=== PATIENT | female | born 1970 | race Hispanic/Latino ===

== ENCOUNTER 2020-12-24 17:49 | Emergency (ER) | payer OTHER ==
--- OUTSIDE RECORDS SUMMARY | 2020-12-24 17:51 | XMS REPORT | Continuity of Care Document ---
:1970 Author Organization [facility] t Address [address] [place] [address] Care Team Providers Name Role Phone Ryland FREIRE Attending Clinician Problems This patient has no known problems. Allergies, Adverse Reactions, Alerts This patient has no known allergies or adverse reactions. Medications This patient has no known medications. Procedures This patient has no known procedures. Encounters Start End Encounter Admission Attending Care Care Encounter Source Date/Time Date/Time Type Type Clinicians Facility Department ID 2020-12-16 2020-12-16 Outpatient [facility] [id number] [facility] 00:00:00 00:00:00 [facility] 2019-08-28 2019-08-28 [facility] NADIYA Marcelino [id number] 08:19:17 16:40:17 ne Visit [facility] [id number] [place] [id number] [facility] [phone] [facility] [address] Building Results This patient has no known results.
--- NOTE | 2020-12-24 19:17 | RAD REPORT ---
EXAM DESCRIPTION: CT - Head Brain Wo Cont - 12/24/2020 7:08 pm CLINICAL HISTORY: DIZZINESS COMPARISON: <Comparisons> TECHNIQUE: All CT scans are performed using dose optimization technique as appropriate and may inclu de automated exposure control or mA/KV adjustment according to patient size. FINDINGS: No intracranial hemorrhage, hydrocephalus or extra-axial fluid collection.No areas of brai n edema or evidence of midline shift. The paranasal sinuses and mastoids are clear. The calvarium is intact. IMPRESSION: No acute intracranial abnormality.
[2020-12-24 21:15] LABS: Absolute Lymphocytes (CBC) 1.5 K/uL (0.7-4.9); Basophils % 0.5 % (0-1.3); Hematocrit 42.4 % (36.0-45.0); Lymphocytes % 24.1 % (15.3-44.8); MPV 7.2 fL (7.6-11.3); RBC Red Blood Cell Count 4.66 M/uL (3.86-4.86)
[2020-12-24 21:17] LABS: Protime INR 1.05
[2020-12-24] MEDS ORDERED: NA CHLORIDE 0.9% 1,000 ML ONE (21:26)
[2020-12-24] MEDS ORDERED: METOCLOPRAMIDE 10 MG/2mL INJ ONE (21:26)
[2020-12-24] MEDS ORDERED: KETOROLAC 30 MG/ML INJ ONE (21:26)
--- NOTE | 2020-12-24 21:31 | RAD REPORT ---
EXAM DESCRIPTION: RAD - Chest Single View - 12/24/2020 8:53 pm CLINICAL HISTORY: htn COMPARISON: Abdomen Pelvis W Contrast dated 12/22/2020; Abdomen Pelvis W Contrast dated 09/20/2020 CHEST PA AND LAT 2 VIEW dated 12/22/2014; CHEST SINGLE VIEW dated 03/16/2014; CHEST SINGLE VIEW dated 03/12/2014 FINDINGS: No evidence of edema or pneumonia. The heart size is within normal limits.No acute osseous abnormality. No significant pleural effusions or pneumothorax. IMPRESSION: No acute cardiopulmonary disease.
[2020-12-24 21:33] LABS: ALT/SGPT 45 U/L (12-78); AST/SGOT 25 U/L (15-37); Albumin 3.9 g/dL (3.4-5.0); Alkaline Phosphatase 129 U/L (45-117); BUN Blood Urea Nitrogen 9 mg/dL (7-18); Bicarbonate 31 mmol/L (21-32); Bilirubin Direct 0.2 mg/dL (0-0.2); Bilirubin Total 0.6 mg/dL (0.2-1.0); Glucose Level 97 mg/dL (74-106); Magnesium 2.3 mg/dL (1.8-2.4); NT PRO-BNP 374 pg/mL (<125); Potassium 3.9 mmol/L (3.5-5.1); Protein, Total 8.4 g/dL (6.4-8.2); Sodium Level 142 mmol/L (136-145); Troponin (Emerg Dept Use Only) < 0.02 ng/mL (0.0-0.045)
[2020-12-24 22:27] LABS: Thyroid Stimulating Hormone < 0.005 uIU/mL (0.360-3.740)
--- NOTE | 2020-12-24 22:46 | ER ---
Nurse's Notes [facility] Name: Colleen Ny Age: 50 yrs Sex: Female : 1970 Arrival Date: 12/24/2020 Time: 17:50 Bed 6 Private MD: Diagnosis: Essential (primary) hypertension Presentation: 12/24 18:12 Chief complaint: Patient states: "my blood pressure was 210/80 this morning and got aa5 scared". Pt reports dizziness earlier today. Denies any headache or dizziness at this time. Pt states "My doctor took me off my thyroid medicine since september and my new doctor doesn't want to prescribe me thyroid medication until I see a specialist". Coronavirus screen: At this time, the client does not indicate any symptoms associated with coronavirus-19. Ebola Screen: Patient negative for fever greater than or equal to 101.5 degrees Fahrenheit, and additional compatible Ebola Virus Disease symptoms. Initial Sepsis Screen: Does the patient meet any 2 criteria? No. Patient's initial sepsis screen is negative. Does the patient have a suspected source of infection? No. Patient's initial sepsis screen is negative. Risk Assessment: Do you want to hurt yourself or someone else? Patient reports no desire to harm self or others. Onset of symptoms was December 24, 2020. 18:12 Method Of Arrival: Ambulatory aa5 18:12 Acuity: TEO 2 aa5 Historical: - Allergies: 18:16 PENICILLINS; aa5 - PMHx: 18:16 Hypertensive disorder; thyroid problem; aa5 - PSHx: 18:16 throat; section; aa5 - Immunization history:: Client reports receiving the 2nd dose of the Covid vaccine, Flu vaccine is up to date. - Social history:: Smoking status: Patient denies any tobacco usage or history of. - Family history:: not pertinent. Screenin:03 Abuse screen: Denies threats or abuse. Nutritional screening: No deficits noted. ea Tuberculosis screening: No symptoms or risk factors identified. Fall Risk None identified. Assessment: 21:03 General: Appears in no apparent distress. Behavior is calm, cooperative, appropriate ea for age. Pain: Complains of pain in abdomen. Neuro: Level of Consciousness is awake, alert, obeys commands, Oriented to person, place, time. Cardiovascular: Patient's skin is warm and dry. Respiratory: Airway is patent Respiratory effort is even, unlabored, Respiratory pattern is regular, symmetrical. Derm: Skin is pink, warm \\T\\ dry. 22:04 Reassessment: Patient appears in no apparent distress at this time. Patient and/or jb4 family updated on plan of care and expected duration. Pain level reassessed. Patient is alert, oriented x 3, equal unlabored respirations, skin warm/dry/pink. 23:06 Reassessment: Patient and/or family updated on plan of care and expected duration. Pain ea level reassessed. Patient is alert, oriented x 3, equal unlabored respirations, skin warm/dry/pink. Discharge instruction given to patient verbalized the understanding of instruction. Pt left ED ambulatory tolerating well. Vital Signs: 18:12 BP 241 / 78; Pulse 63; Resp 18 S; Temp 97.9(TE); Pulse Ox 98% on R/A; aa5 21:30 BP 189 / 50; Pulse 52; Resp 18; Pulse Ox 98% on R/A; jb4 ED Course: 17:50 Patient arrived in ED. as 18:12 Arm band placed on. aa5 18:13 Triage completed. aa5 19:08 CT Head Brain wo Cont In Process Unspecified. EDMS 20:36 Tae Gauthier RN is Primary Nurse. jb4 20:37 Vitor Watts MD is Attending Physician. ma2 20:53 XRAY Chest (1 view) In Process Unspecified. EDMS 20:58 Initial lab(s) drawn, by ED staff, sent to lab. Inserted saline lock: 20 gauge in right jb4 antecubital area, using aseptic technique. Blood collected. 21:03 Patient has correct armband on for positive identification. Bed in low position. Call ea light in reach. 23:06 No provider procedures requiring assistance completed. IV discontinued, intact, ea bleeding controlled, No redness/swelling at site. Pressure dressing applied. Administered Medications: 21:08 Drug: NS 0.9% 1000 ml Route: IV; Rate: 1 bolus; Site: right antecubital; jb4 21:08 Drug: Reglan (metoCLOPramide) 10 mg Route: IVP; Site: right antecubital; jb4 21:10 Drug: Ketorolac 30 mg Route: IVP; Site: right antecubital; jb4 Outcome: 22:46 Discharge ordered by . matt 23:06 Discharged to home ambulatory, with family. noe 23:06 Condition: stable 23:06 Discharge instructions given to patient, Instructed on discharge instructions, follow up and referral plans. medication usage, Demonstrated understanding of instructions, follow-up care, medications, Prescriptions given X 1. 23:07 Patient left the ED. noe Signatures: Dispatcher [employer] EDMS Anyi Ogden Audri, RN RN aa5 Tae Gauthier RN RN jb4 Kina Helm RN RN ea Alzahri, Mohammad, MD MD ma2 Corrections: (The following items were deleted from the chart) 18:15 18:12 Chief complaint: Patient states: "my blood pressure was 210/80 this morning and aa5 got scared". Pt reports dizziness earlier today. Denies any headache or dizziness at this time. aa5 18:16 18:12 Acuity: TEO 3 aa5 aa5 18:17 18:16 Immunization history: Client reports receiving the 2nd dose of the Covid vaccine, aa5 Flu vaccine is not up to date. aa5
--- NOTE | 2020-12-24 22:46 | EDPHYS ---
Physician Documentation [facility] Name: Colleen Ny Age: 50 yrs Sex: Female : 1970 Arrival Date: 12/24/2020 Time: 17:50 Bed 6 Private MD: ED Physician Vitor Watts HPI: 12/24 22:08 This 50 yrs old Female presents to ER via Ambulatory with complaints of High ma2 Blood Pressure. 22:08 The patient has elevated blood pressure and discovered this at home. Onset: The ma2 symptoms/episode began/occurred gradually, 1 day(s) ago. Associated signs and symptoms: Pertinent negatives: chest pain, dizziness, dyspnea, headache, lightheadedness, nausea, visual changes, vomiting, weakness. Severity of symptoms: At its worst the blood pressure was moderate, in the emergency department the blood pressure is unchanged. The patient has experienced similar episodes in the past. Patient has high blood pressure, takes atenolol, her blood pressure has been high above 170s systolic, she is here with asymptomatic hypertension, she has a chronic headache, tension type, unchanged, however very mild headache at this time which is unchanged for the last 3 days.. Historical: - Allergies: 18:16 PENICILLINS; aa5 - PMHx: 18:16 Hypertensive disorder; thyroid problem; aa5 - PSHx: 18:16 throat; section; aa5 - Immunization history:: Client reports receiving the 2nd dose of the Covid vaccine, Flu vaccine is up to date. - Social history:: Smoking status: Patient denies any tobacco usage or history of. - Family history:: not pertinent. ROS: 22:08 Constitutional: Negative for fever, chills, and weight loss. ma2 22:08 All other systems are negative. Exam: 22:08 Constitutional: This is a well developed, well nourished patient who is awake, alert, ma2 and in no acute distress. Head/Face: Normocephalic, atraumatic. Eyes: Pupils equal round and reactive to light, extra-ocular motions intact. Lids and lashes normal. Conjunctiva and sclera are non-icteric and not injected. Cornea within normal limits. Periorbital areas with no swelling, redness, or edema. ENT: Nares patent. No nasal discharge, no septal abnormalities noted. Tympanic membranes are normal and external auditory canals are clear. Oropharynx with no redness, swelling, or masses, exudates, or evidence of obstruction, uvula midline. Mucous membranes moist. Neck: Trachea midline, no thyromegaly or masses palpated, and no cervical lymphadenopathy. Supple, full range of motion without nuchal rigidity, or vertebral point tenderness. No Meningismus. Chest/axilla: Normal chest wall appearance and motion. Nontender with no deformity. No lesions are appreciated. Cardiovascular: Regular rate and rhythm with a normal S1 and S2. No gallops, murmurs, or rubs. Normal PMI, no JVD. No pulse deficits. Respiratory: Lungs have equal breath sounds bilaterally, clear to auscultation and percussion. No rales, rhonchi or wheezes noted. No increased work of breathing, no retractions or nasal flaring. Abdomen/GI: Soft, non-tender, with normal bowel sounds. No distension or tympany. No guarding or rebound. No evidence of tenderness throughout. Back: No spinal tenderness. No costovertebral tenderness. Full range of motion. Skin: Warm, dry with normal turgor. Normal color with no rashes, no lesions, and no evidence of cellulitis. MS/ Extremity: Pulses equal, no cyanosis. Neurovascular intact. Full, normal range of motion. Neuro: Awake and alert, GCS 15, oriented to person, place, time, and situation. Cranial nerves II-XII grossly intact. Motor strength 5/5 in all extremities. Sensory grossly intact. Cerebellar exam normal. Normal gait. Vital Signs: 18:12 BP 241 / 78; Pulse 63; Resp 18 S; Temp 97.9(TE); Pulse Ox 98% on R/A; aa5 21:30 BP 189 / 50; Pulse 52; Resp 18; Pulse Ox 98% on R/A; jb4 MDM: 21:01 Patient medically screened. ma2 22:45 Differential diagnosis: htn, vs migrain headache vs tension headache. Data reviewed: ma2 vital signs, nurses notes. Counseling: I had a detailed discussion with the patient and/or guardian regarding: the historical points, exam findings, and any diagnostic results supporting the discharge/admit diagnosis, the presence of at least one elevated blood pressure reading (>120/80) during this emergency department visit, the need for outpatient follow up. Response to treatment: the patient's symptoms have markedly improved after treatment. 12/24 20:37 Order name: Basic Metabolic Panel; Complete Time: :12/24 20:37 Order name: CBC with Diff; Complete Time: :12/24 20:37 Order name: LFT's; Complete Time: :46 12/24 20:37 Order name: Magnesium; Complete Time: :12/24 20:37 Order name: NT PRO-BNP; Complete Time: :12/24 20:37 Order name: PT-INR; Complete Time: :46 12/24 18:46 Order name: CT Head Brain wo Cont; Complete Time: 20:36 aa5 12/24 20:37 Order name: Troponin (emerg Dept Use Only); Complete Time: :46 12/24 20:37 Order name: XRAY Chest (1 view); Complete Time: :46 12/24 21:01 Order name: TSH; Complete Time: 22:45 12/24 21:01 Order name: T4 Free; Complete Time: 22:45 12/24 21:22 Order name: Lipase; Complete Time: 22:22 12/24 20:37 Order name: EKG; Complete Time: 20:38 12/24 20:37 Order name: Cardiac monitoring; Complete Time: 21:12/24 20:37 Order name: EKG - Nurse/Tech; Complete Time: 21:12/24 20:37 Order name: IV Saline Lock; Complete Time: 21:12/24 20:37 Order name: Labs collected and sent; Complete Time: 21:12/24 20:37 Order name: O2 Per Protocol; Complete Time: :12/24 20:37 Order name: O2 Sat Monitoring; Complete Time: 21: Administered Medications: 21:08 Drug: NS 0.9% 1000 ml Route: IV; Rate: 1 bolus; Site: right antecubital; jb4 21:08 Drug: Reglan (metoCLOPramide) 10 mg Route: IVP; Site: right antecubital; jb4 21:10 Drug: Ketorolac 30 mg Route: IVP; Site: right antecubital; jb4 Disposition Summary: 12/24/20 22:46 Discharge Ordered Location: Home ma2 Condition: Stable ma2 Diagnosis - Essential (primary) hypertension ma2 Followup: ma2 - With: Private Physician - When: Tomorrow - Reason: Continuance of care Discharge Instructions: - Discharge Summary Sheet ma2 - Hypertension, Adult ma2 - DASH Eating Plan ma2 Forms: - Medication Reconciliation Form ma2 - Thank You Letter ma2 - Antibiotic Education ma2 - Prescription Opioid Use ma2 Prescriptions: - clonidine HCl 0.1 mg Oral tablet - take 1 tablet by ORAL route once daily Take 1 tablet/day, as needed for high ma2 blood pressure. Take 1 tablet if systolic blood pressure (upper number) is above 200, or diastolic blood pressure (lower number) is above 100; 6 tablet; Refills: 0, Product Selection Permitted Signatures: Dispatcher [employer] Asiya Butts RN RN aa5 Tae Gauthier RN RN jb4 Vitor Watts MD MD ma2 Corrections: (The following items were deleted from the chart) 18:17 18:16 Immunization history: Client reports receiving the 2nd dose of the Covid vaccine, aa5 Flu vaccine is not up to date. aa5
[2020-12-25 04:00] VITALS: TEMP 97.9; O2SAT 98
[2020-12-25 04:02] VITALS: BP 189/50
== END 2020-12-24 23:07 | disposition home or self-care (01) ==
LOC: ER 17:49
DX: I10 Essential (primary) hypertension (principal); Z88.0 Allergy status to penicillin
CPT/HCPCS: 93005; 85025; 80048; 36415; 83735; 85610; 80076; 84443; 84484; 84439; 83690; 83880; 70450; 71045; 96375; 96374; 99284; J2765; J7030

== ENCOUNTER 2020-12-28 17:28 | Emergency (ER) | payer OTHER ==
--- OUTSIDE RECORDS SUMMARY | 2020-12-28 17:31 | XMS REPORT | Continuity of Care Document ---
:1970 Author Organization [facility] t Address [address] [place] [address] Care Team Providers Name Role Phone Ryland FREIRE Attending Clinician Problems This patient has no known problems. Allergies, Adverse Reactions, Alerts This patient has no known allergies or adverse reactions. Medications This patient has no known medications. Procedures This patient has no known procedures. Encounters Start End Encounter Admission Attending Care Care Encounter Source Date/Time Date/Time Type Type Clinicians Facility Department ID 2020-12-24 2020-12-24 Outpatient [facility] [id number] [facility] 00[facility]00 [facility] 2020-12-17 2020-12-17 Outpatient [facility] [id number] [facility] 2020-12-16 2020-12-16 Outpatient [facility] [id number] [facility] 00:00:00 00:00:00 [facility] 2019-08-28 2019-08-28 [facility] NADIYA Marcelino [id number] 08:19:17 16:40:17 ne Visit [facility] [id number] [place] [id number] [place] [phone] [address] [address] Building Results This patient has no known results.
--- NOTE | 2020-12-28 21:26 | RAD REPORT ---
EXAM DESCRIPTION: RAD - Chest Single View - 12/28/2020 8:50 pm CLINICAL HISTORY: CHEST PAIN Chest pain. COMPARISON: Chest Single View dated 12/24/2020; CHEST PA AND LAT 2 VIEW dated 12/22/2014; CHEST SINGLE VIEW dated 03/16/2014; CHEST SINGLE VIEW dated 03/12/2014 FINDINGS: Portable technique limits examination quality. The lungs are grossly clear. The heart is upper limit of normal in size. No displaced fractures. IMPRESSION: No acute intrathoracic process suspected.
[2020-12-28 21:43] LABS: Absolute Lymphocytes (CBC) 1.7 K/uL (0.7-4.9); Basophils % 0.8 % (0-1.3); Hematocrit 38.2 % (36.0-45.0); Lymphocytes % 30.3 % (15.3-44.8); MPV 7.4 fL (7.6-11.3); RBC Red Blood Cell Count 4.21 M/uL (3.86-4.86)
[2020-12-28 22:00] LABS: ALT/SGPT 41 U/L (12-78); AST/SGOT 25 U/L (15-37); Albumin 3.7 g/dL (3.4-5.0); Alkaline Phosphatase 114 U/L (45-117); BUN Blood Urea Nitrogen 10 mg/dL (7-18); Bicarbonate 30 mmol/L (21-32); Bilirubin Direct 0.2 mg/dL (0-0.2); Bilirubin Total 0.7 mg/dL (0.2-1.0); Glucose Level 94 mg/dL (74-106); Magnesium 2.3 mg/dL (1.8-2.4); NT PRO-BNP 271 pg/mL (<125); Potassium 3.8 mmol/L (3.5-5.1); Protein, Total 7.7 g/dL (6.4-8.2); Sodium Level 142 mmol/L (136-145); Troponin (Emerg Dept Use Only) < 0.02 ng/mL (0.0-0.045)
[2020-12-28 22:07] LABS: Protime INR 1.04
--- NOTE | 2020-12-28 23:01 | ER ---
Nurse's Notes [facility] Name: Colleen Ny Age: 50 yrs Sex: Female : 1970 Arrival Date: 12/28/2020 Time: 17:35 Bed 19 Private MD: Diagnosis: Essential (primary) hypertension Presentation: 12/28 19:22 Chief complaint: Patient states: her BP has been high, was seen here a couple weeks ago iw for same symptoms, was prescribed medication but it is still high. Coronavirus screen: At this time, the client does not indicate any symptoms associated with coronavirus-19. Ebola Screen: Patient negative for fever greater than or equal to 101.5 degrees Fahrenheit, and additional compatible Ebola Virus Disease symptoms Patient denies exposure to infectious person. Patient denies travel to an Ebola-affected area in the 21 days before illness onset. No symptoms or risks identified at this time. Initial Sepsis Screen: Does the patient meet any 2 criteria? No. Patient's initial sepsis screen is negative. Does the patient have a suspected source of infection? No. Patient's initial sepsis screen is negative. Risk Assessment: Do you want to hurt yourself or someone else? Patient reports no desire to harm self or others. Onset of symptoms was December 28, 2020. 19:22 Method Of Arrival: Ambulatory iw 19:22 Acuity: TEO 3 iw Historical: - Allergies: 19:23 PENICILLINS; iw - PMHx: 19:23 Hypertensive disorder; Thyroid problem; iw - PSHx: 19:23 section; throat; iw - Social history:: Smoking status: Patient denies any tobacco usage or history of. Screenin:25 Abuse screen: Denies threats or abuse. Nutritional screening: No deficits noted. em Tuberculosis screening: No symptoms or risk factors identified. Fall Risk None identified. Assessment: 21:07 General: Appears in no apparent distress. comfortable, Behavior is calm, cooperative, em appropriate for age. Pain: Complains of pain in chest Pain currently is 0 out of 10 on a pain scale. Neuro: Level of Consciousness is awake, alert, obeys commands, Oriented to person, place, time, situation, Appropriate for age. Cardiovascular: Capillary refill < 3 seconds Patient's skin is warm and dry. Respiratory: Airway is patent Respiratory effort is even, unlabored, Respiratory pattern is regular, symmetrical. GI: Reports nausea. Derm: Skin is intact, is healthy with good turgor, Skin is pink, warm \T\ dry. Musculoskeletal: Capillary refill < 3 seconds, Range of motion: intact in all extremities. 22:30 Reassessment: Patient appears in no apparent distress at this time. Patient and/or em family updated on plan of care and expected duration. Pain level reassessed. Patient is alert, oriented x 3, equal unlabored respirations, skin warm/dry/pink. 23:22 Reassessment: Patient appears in no apparent distress at this time. Patient and/or em family updated on plan of care and expected duration. Pain level reassessed. Patient is alert, oriented x 3, equal unlabored respirations, skin warm/dry/pink. Vital Signs: 19:22 BP 186 / 63; Pulse 51; Resp 16; Temp 98.2; Pulse Ox 99% on R/A; Weight 71.67 kg; iw 20:24 BP 170 / 58; Pulse 51; Resp 16; Pulse Ox 99% on R/A; em 23:23 BP 172 / 80; Pulse 48; Resp 18; Pulse Ox 99% on R/A; Pain 0/10; em ED Course: 17:35 Patient arrived in ED. mr 19:23 Triage completed. iw 20:17 Sherif Evans NP is PHCP. pm1 20:18 Néstor Page MD is Attending Physician. pm1 20:18 Kane Huang RN is Primary Nurse. em 20:25 Patient has correct armband on for positive identification. em 20:51 XRAY Chest (1 view) In Process Unspecified. EDMS 21:07 Arm band placed on. em 23:22 No provider procedures requiring assistance completed. Patient did not have IV access em during this emergency room visit. Administered Medications: No medications were administered Outcome: 23:00 Discharge ordered by MD. pm1 23:22 Discharged to home ambulatory. em 23:22 Condition: good 23:22 Discharge instructions given to patient, Instructed on discharge instructions, follow up and referral plans. Demonstrated understanding of instructions, follow-up care. 23:23 Patient left the ED. em Signatures: Dispatcher [employer] [facility] Naresh Diana mr Kane Huang RN RN em Jocelyne Weller RN RN Sherif Evans NP NNPS pm1 Corrections: (The following items were deleted from the chart) 19:24 19:22 Resp 16bpm; Pulse Ox 99% RA; Temp 98.2F; iw iw
--- NOTE | 2020-12-28 23:01 | EDPHYS ---
Physician Documentation [facility] Name: Colleen Ny Age: 50 yrs Sex: Female : 1970 Arrival Date: 12/28/2020 Time: 17:35 Bed 19 Private MD: ED Physician Néstor Page HPI: 12/28 22:59 This 50 yrs old Female presents to ER via Ambulatory with complaints of High pm1 Blood Pressure. 22:59 The patient has elevated blood pressure and discovered this at home, with a home pm1 device, at a physician's office, and sent to the emergency department for evaluation. Onset: The symptoms/episode began/occurred 1 week(s) ago. Modifying factors: The symptoms are alleviated by prescription meds, clonidine. Associated signs and symptoms: Pertinent positives: chest pain, Pertinent negatives: weakness, shortness of breath. Severity of symptoms: in the emergency department the blood pressure is improved. The patient has been recently seen by a physician: the patient's primary care provider, with similar presenting complaints, and was sent to the [facility] Emergency Department for further evaluation. Patient was seen in the ER here last week and given prescription for clonidine with parameters by ER MD. Patient followed up with PCP and was instructed to go to the ER for further blood pressure management . Historical: - Allergies: 19:23 PENICILLINS; iw - PMHx: 19:23 Hypertensive disorder; Thyroid problem; iw - PSHx: 19:23 section; throat; iw - Social history:: Smoking status: Patient denies any tobacco usage or history of. ROS: 22:59 Constitutional: Negative for fever, chills, and weight loss, Respiratory: Negative for pm1 shortness of breath, cough, wheezing, and pleuritic chest pain. 22:59 Back: Negative for injury and pain, MS/Extremity: Negative for injury and deformity, Skin: Negative for injury, rash, and discoloration, Neuro: Negative for headache, weakness, numbness, tingling, and seizure. 22:59 Cardiovascular: Positive for chest pain, Negative for edema, palpitations. 22:59 All other systems are negative. Exam: 22:59 Constitutional: This is a well developed, well nourished patient who is awake, alert, pm1 and in no acute distress. Head/Face: Normocephalic, atraumatic. Cardiovascular: Regular rate and rhythm with a normal S1 and S2. No gallops, murmurs, or rubs. Normal PMI, no JVD. No pulse deficits. Respiratory: Lungs have equal breath sounds bilaterally, clear to auscultation and percussion. No rales, rhonchi or wheezes noted. No increased work of breathing, no retractions or nasal flaring. Abdomen/GI: Soft, non-tender, with normal bowel sounds. No distension or tympany. No guarding or rebound. No evidence of tenderness throughout. Back: No spinal tenderness. No costovertebral tenderness. Full range of motion. Skin: Warm, dry with normal turgor. Normal color with no rashes, no lesions, and no evidence of cellulitis. MS/ Extremity: Pulses equal, no cyanosis. Neurovascular intact. Full, normal range of motion. 22:59 Eyes: Pupils equal round and reactive to light, extra-ocular motions intact. Lids and lashes normal. Conjunctiva and sclera are non-icteric and not injected. Cornea within normal limits. Periorbital areas with no swelling, redness, or edema. ENT: Nares patent. No nasal discharge, no septal abnormalities noted. Tympanic membranes are normal and external auditory canals are clear. Oropharynx with no redness, swelling, or masses, exudates, or evidence of obstruction, uvula midline. Mucous membranes moist. 22:59 Neuro: Exam negative for acute changes, Orientation: is normal, Mentation: is normal, Motor: is normal, moves all fours, Gait: is steady, at a normal pace, without difficulty. Vital Signs: 19:22 BP 186 / 63; Pulse 51; Resp 16; Temp 98.2; Pulse Ox 99% on R/A; Weight 71.67 kg; iw 20:24 BP 170 / 58; Pulse 51; Resp 16; Pulse Ox 99% on R/A; em 23:23 BP 172 / 80; Pulse 48; Resp 18; Pulse Ox 99% on R/A; Pain 0/10; em MDM: 20:25 Patient medically screened. [facility] 22:59 Data reviewed: vital signs. Data interpreted: Pulse oximetry: on room air is 99 %. pm1 Interpretation: normal. Counseling: I had a detailed discussion with the patient and/or guardian regarding: the historical points, exam findings, and any diagnostic results supporting the discharge/admit diagnosis, lab results, radiology results, the need for outpatient follow up, a family practitioner, to return to the emergency department if symptoms worsen or persist or if there are any questions or concerns that arise at home. 22:59 Special discussion: I have referred the patient to see his PCP for further evaluation pm1 of high blood pressure. 12/28 20:30 Order name: Basic Metabolic Panel; Complete Time: 22: pm1 12/28 20:30 Order name: CBC with Diff; Complete Time: 22: pm1 12/28 20:30 Order name: LFT's; Complete Time: 22: pm1 12/28 20:30 Order name: Magnesium; Complete Time: 22: pm12/28 20:30 Order name: NT PRO-BNP; Complete Time: 22: pm12/28 20:30 Order name: PT-INR; Complete Time: 22: pm1 12/28 20:30 Order name: Troponin (emerg Dept Use Only); Complete Time: 22:21 pm1 12/28 20:30 Order name: XRAY Chest (1 view); Complete Time: 21:33 pm1 12/28 20:30 Order name: EKG; Complete Time: 20:31 pm1 12/28 20:30 Order name: Cardiac monitoring; Complete Time: 21:07 pm12/28 20:30 Order name: EKG - Nurse/Tech; Complete Time: 21:07 pm1 12/28 20:30 Order name: IV Saline Lock; Complete Time: 21:07 pm12/28 20:30 Order name: Labs collected and sent; Complete Time: 21:07 pm12/28 20:30 Order name: O2 Per Protocol; Complete Time: 21:07 pm1 12/28 20:30 Order name: O2 Sat Monitoring; Complete Time: 21:07 pm1 Administered Medications: No medications were administered Disposition: 12/29 07:39 Co-signature as Attending Physician, Néstor Page MD I agree with the assessment and jazz plan of care. Disposition Summary: 12/28/20 23:00 Discharge Ordered Location: Home pm1 Problem: new pm1 Symptoms: have improved pm1 Condition: Stable pm1 Diagnosis - Essential (primary) hypertension pm1 Followup: pm1 - With: Emergency Department - When: As needed - Reason: Worsening of condition Followup: pm1 - With: Private Physician - When: 2 - 3 days - Reason: Recheck today's complaints, Continuance of care, Re-evaluation by your physician Discharge Instructions: - Discharge Summary Sheet pm1 - Hypertension, Adult pm1 - How to Take Your Blood Pressure, [id number] pm1 - DASH Eating Plan pm1 - Managing Your Hypertension pm1 Forms: - Medication Reconciliation Form pm1 - Thank You Letter pm1 - Antibiotic Education pm1 - Prescription Opioid Use pm1 Signatures: Dispatcher [employer] EDNéstor Mcneal MD MD cha Williams, Irene, RAFFAELE RN Sherif Price NP TURRET PRESS OPERATOR pm1
[2020-12-28 23:33] VITALS: TEMP 98.2; O2SAT 99
[2020-12-28 23:36] VITALS: BP 172/80
--- NOTE | 2020-12-29 11:18 | EKG ---
Test Date: 2020-12-28 Test Time: 20:43:18 Automotive Glass Installer: [employer] MEASUREMENT RESULTS: Intervals: Rate: 48 [place]: 134 QRSD: 70 QT: 432 QTc: 385 [place]: P: 6 [place]: 134 QRS: 19 T: 62 INTERPRETIVE STATEMENTS: Marked sinus bradycardia Left ventricular hypertrophy with repolarization abnormality Abnormal ECG Compared to ECG 12/24/2020 20:59:43 Early repolarization now present Sinus rhythm no longer present Electronically Signed On 12-29-20 11:16:25 CDT by Augustine Boogie
== END 2020-12-28 23:23 | disposition home or self-care (01) ==
LOC: ER 17:28
DX: I10 Essential (primary) hypertension (principal); Z88.0 Allergy status to penicillin
CPT/HCPCS: 36415; 71045; 80048; 80076; 83735; 83880; 84484; 85025; 85610; 93005

== ENCOUNTER 2021-09-14 16:15 | Emergency (ER) | payer OTHER ==
--- OUTSIDE RECORDS SUMMARY | 2021-09-14 16:17 | XMS REPORT | Continuity of Care Document ---
:1970 Author Organization [facility] t Address [address] [place] [address] Care Team Providers Name Role Phone Kwame Attending Clinician Unavailable JUANITO Attending Clinician Unavailable Dionne KRUSE Attending Clinician Unavailable YANE Attending Clinician Unavailable Harriet FREIRE Attending Clinician HARRIET Attending Clinician Unavailable Kelby ROBERTSON Attending Clinician Unavailable EMERGENCY ROOM Admitting Clinician Unavailable Problems This patient has no known problems. Allergies, Adverse Reactions, Alerts Allergy Allergy Status Severity Reaction(s) Onset Inactive Treating Comm ents Source Name Type Date Date Clinician SEAFOOD/ Food Active Unknown-Cmnt 2018-0 Un felicia FISH 02-22 ity of 00:00: [address] PENICILL Drug Active Rash 2006-05 [facility] INS Class 1-05 ity of 00:00: [address] LATEX DRUG Active Rash 2006-05 [facility] INGREDI 1-05 ity of 00:00: [address] Medications This patient has no known medications. Procedures This patient has no known procedures. Encounters Start End Encounter Admission Attending Care Care Encounter Source Date/Time Date/Time Type Type Clinicians Facility Department ID 2021-06-23 [facility] [id number] [facility] [address] 14:24:21 [place] [id number] [facility] 2021-06-23 [facility] [id number] [facility] 14:23:35 [place] [id number] [facility] 2021-06-23 Outpatient Puente, [facility] [id number] [address] 14:00:27 [place]nee [id number] [facility] 2021-06-23 Outpatient Kwame, [facility] [id number] 13:34:18 [place]nee [id number] [facility] 2021-06-23 Outpatient Puente, [facility] [id number] 13:28:36 [place] [id number] [facility] 2021-03-22 2021-03-22 Outpatient [facility] [id number] [facility] 2021-03-17 2021-03-17 Outpatient [facility] [id number] [facility] 2021-03-11 2021-03-11 Outpatient [facility] [id number] [facility] 2021-01-19 2021-01-19 Outpatient Fiorella JUANITO [facility] [id number] Univers 09:30:00 09:30:00 DEBBIE [id number] [facility] 2021-01-19 2021-01-19 Outpatient Fiorella JUANITO [facility] [id number] [facility] 09:30:00 09:30:00 DEBBIE [facility] 2021-01-15 2021-01-15 Outpatient Fiorella KRUSE [facility] [id number] Univers 10:00:00 10:00:00 WISAM [id number] [facility] 2021-01-15 2021-01-15 Outpatient Fiorella KRUSE [facility] [id number] [facility] 10:00:00 10:00:00 WISAM [facility] 2021-01-08 2021-01-08 Outpatient [facility] [id number] [facility] 2021-01-07 2021-01-07 Outpatient [facility] [id number] [facility] 2020-12-31 2020-12-31 Outpatient [facility] [id number] [facility] 2020-12-30 2020-12-30 Outpatient [facility] [id number] [facility] 2020-12-25 2020-12-25 Outpatient [facility] [id number] [facility] 2020-12-24 2020-12-24 Outpatient [facility] [id number] [facility] 2020-12-21 2020-12-21 Outpatient R YANE [facility] [id number] Univers 10:00:00 10:00:00 [facility] [id number] [facility] 2020-12-21 2020-12-21 Outpatient Fiorella CHE [facility] [id number] Univers 10:00:00 10:00:00 [facility] 2020-12-17 2020-12-17 Outpatient [facility] [id number] [facility] 2020-12-16 2020-12-16 Outpatient [facility] [id number] [facility] 2019-08-28 2019-08-28 [facility] [id number] 08:19:17 16:40:17 [facility] [id number] Glenna [id number] Son [id number] [address] 2019-08-28 2019-08-28 Outpatient Fiorella LARIOS [facility] [id number] Univers 15:00:00 15:00:00 [facility] 2019-08-28 2019-08-28 Outpatient R HARRIET [facility] [id number] Univers 15:00:00 15:00:00 EARLINEJOSH [id number] [facility] 2012-04-21 2012-04-21 Emergency X AILYN [facility] ERT [id number] Univers 05:34:00 06:57:00 PARI Mckoy [facility] Results Test Description Test Time Test Comments Results Result Comments Source CBC W/AUTO DIFF WITH PLATELETS 2021-07-15 06:38:12 Test Item Value Reference Range Interpretation Comme nts WBC (test code = 1001) 6.8 K/UL 3.5-11.0 RBC (test code = 1002) 4.41 M/UL 3.80-5.40 HEMOGLOBIN (test code = 14.0 G/DL 11.5-15.5 1003) HEMATOCRIT (test code = 40.1 % 34.0-45.0 1004) MCV (test code = 1005) 90.9 fL 80.0-99.0 MCH (test code = 1006) 31.7 PG 25.0-33.0 MCHC (test code = 1007) 34.9 G/DL 31.0-36.0 RDW (test code = 1038) 12.7 % 11.5-15.0 NEUTROPHILS (test code = 62.9 % 1008) LYMPHOCYTES (test code = 27.4 % 1010) MONOCYTES (test code = 1011) 6.2 % EOSINOPHILS (test code = 2.8 % 1012) BASOPHILS (test code = 1013) 0.6 % IMMATURE GRANULOCYTES (test 0.1 % code = 1036) NUCLEATED RBCS (test code = 0.0 /100 WBC'S See_Comment [Automated message] The 1065) system which ge nerated this result transmit torie reference range : 0.0. The reference range was not used to interpr et this result as fahad l/abnormal. PLATELET COUNT (test code = 315 K/UL 123-377 9364) ABSOLUTE NEUTROPHILS (test 4.25 K/UL 1.50-7.50 code = 1066) ABSOLUTE LYMPHOCYTES (test 1.85 K/UL 1.00-4.00 code = 1067) ABSOLUTE MONOCYTES (test 0.42 K/UL 0.20-1.00 code = 1068) ABSOLUTE EOSINOPHILS (test 0.19 K/UL 0.00-0.50 code = 1040) ABSOLUTE BASOPHILS (test 0.04 K/UL 0.00-0.20 code = 1069) ABS IMMATURE GRANULOCYTES 0.01 K/UL 0.00-0.10 (test code = 1020) ABS NUCLEATED RBCS (test 0.00 K/UL 0.00-0.11 code = 53672) TSH, THIRD [id number] 06:06:31 Test Item Value Reference Range Interpretation Comments TSH, THIRD 3.310 UIU/ML 0.400-4.100 UNLESS GENERATION (test OTHERWISE I NDICATED, code = 2821) ALL TESTING PER [facility], I [address] [place] [address] LABORATORY DIRE CTOR: JUVENAL MURGUIA M.D. CLIA NUMBER [id number] CAP ACCREDITATION N O. [id number] LIPID [id number] 03:40:20 Test Item Value Reference Range Interpretation Comments CHOLESTEROL (test 278 MG/DL <200 H code = 2210) TRIGLYCERIDES (test 389 MG/DL <150 H code = 2232) HDL CHOLESTEROL (test 51 MG/DL >39 code = 2220) CALC LDL CHOL (test 161 MG/DL <100 H NOTE: C ALCULATED LDL code = 2237) IS BASED ON PAUL-LUQUE METHOD WHICHINCLUDES ADJUSTABLE TRIGLYCERIDE:VL DL CHOLESTEROL RAT IO.THIS FACTOR VARIES B Y MEASURED TRIGLY CERIDE AND NON-HDLCHOL ESTEROL CONCENTRATIONS WITH INCREASED CALCU LATED LDL SEENIN HIGH ER TRIGLYCERIDE OR LOWER NON-HDL SPECIME NS. FOR MOREINFORMATION , SEE CLIENT ANNOUNCE MENT AT [email or web address] RISK RATIO LDL/HDL 3.16 RATIO <3.22 (test code = 2238) COMPREHENSIVE METABOLIC [id number] 03:40:20 Test Item Value Reference Range Interpretation Comments GLUCOSE (test code = 104 MG/DL 70-99 H 2216) BUN (test code = 11 MG/DL 6-20 2207) CREATININE (test 0.51 MG/DL 0.60-1.30 L code = 2214) eGFR (2020 CKD-EPI) 113 >60 (test code = 66086) ML/MIN/1.73 CALC BUN/CREAT (test 22 RATIO 6-28 code = 2235) SODIUM (test code = 143 MEQ/L 924-473 4092) POTASSIUM (test code 4.0 MEQ/L 3.5-5.4 = 2227) CHLORIDE (test code 102 MEQ/L 95-107 = 2214) CARBON DIOXIDE (test 29 MEQ/L 19-31 code = 2205) CALCIUM (test code = 9.1 MG/DL 8.5-10.5 2208) PROTEIN, TOTAL (test 7.5 G/DL 6.1-8.3 code = 2228) ALBUMIN (test code = 4.7 G/DL 3.5-5.2 2200) CALC GLOBULIN (test 2.8 G/DL 1.9-3.7 code = 2239) CALC A/G RATIO (test 1.7 RATIO 1.0-2.6 code = 2233) BILIRUBIN, TOTAL 0.3 MG/DL See_Comment [Automated message] (test code = 2206) The syste [employer] which generated this result transmit torie reference range : <=1.2. The refe rence range was not u sed to interpret th is result as normal/abnormal . ALKALINE PHOSPHATASE 99 U/L 40-130 (test code = 2203) AST (test code = 17 U/L 9-40 2217) ALT (test code = 13 U/L 5-40 2218)
--- NOTE | 2021-09-14 16:46 | ER ---
Nurse's Notes [facility] Name: Colleen Ny Age: 51 yrs Sex: Female : 1970 Arrival Date: 09/14/2021 Time: 16:16 Bed 11 Private MD: Diagnosis: Epigastric pain Presentation: 09/14 17:27 Chief complaint: Patient states: abd pain, vomiting, dizziness feels hot. Coronavirus iw screen: At this time, the client does not indicate any symptoms associated with coronavirus-19. Ebola Screen: Patient negative for fever greater than or equal to 101.5 degrees Fahrenheit, and additional compatible Ebola Virus Disease symptoms Patient denies exposure to infectious person. Patient denies travel to an Ebola-affected area in the 21 days before illness onset. No symptoms or risks identified at this time. Initial Sepsis Screen: Does the patient meet any 2 criteria? No. Patient's initial sepsis screen is negative. Does the patient have a suspected source of infection? No. Patient's initial sepsis screen is negative. Risk Assessment: Do you want to hurt yourself or someone else? Patient reports no desire to harm self or others. Onset of symptoms was September 14, 2021. 17:27 Method Of Arrival: Ambulatory iw 17:27 Acuity: TEO 3 iw Historical: - Allergies: 17:28 PENICILLINS; iw - PMHx: 17:28 Hypertensive disorder; Thyroid problem; iw - PSHx: 17:28 section; throat; iw - Immunization history:: Adult Immunizations unknown. - Social history:: Smoking status: unknown. Screenin:45 Abuse screen: Denies threats or abuse. Nutritional screening: No deficits noted. bb Tuberculosis screening: No symptoms or risk factors identified. Fall Risk None identified. Assessment: 20:45 General: Appears in no apparent distress. Behavior is calm, cooperative. Pain: bb Complains of pain in abdomen. Neuro: Level of Consciousness is awake, alert, obeys commands, Oriented to person, place, time, situation. Cardiovascular: Capillary refill < 3 seconds Patient's skin is warm and dry. Respiratory: Respiratory effort is even, unlabored, Respiratory pattern is regular. GI: Abdomen is round Bowel sounds present X 4 quads. Abd is soft X 4 quads. Derm: Skin is pink, warm \T\ dry. Musculoskeletal: Circulation, motion, and sensation intact. 20:47 Reassessment: US tech at bedside. bb 22:06 Reassessment: Néstor Raza PA at bedside using language line for discussion of findings bb and recommendations pt to be discharged home and follow-up with PCP. Pt verbalized understanding of and agrees to plan of care. 22:31 Reassessment: Patient is alert, oriented x 3, equal unlabored respirations, skin bb warm/dry/pink. pt verbalized understanding of discharge instructions and ambulated with steady gait to exit. Vital Signs: 17:54 BP 134 / 67; Pulse 78; Resp 16; Temp 98.7; Pulse Ox 98% on R/A; iw 20:27 BP 151 / 60; Pulse 81; Resp 16 S; Temp 98.2(O); Pulse Ox 94% on R/A; bb 22:32 BP 141 / 55; Pulse 64; Resp 16 S; Temp 98(O); Pulse Ox 97% on R/A; bb ED Course: 16:16 Patient arrived in ED. am2 17:28 Triage completed. iw 17:58 Néstor Raza PA is PHCP. cp 17:58 Vitor Watts MD is Attending Physician. cp 20:40 Initial lab(s) drawn, by me, sent to lab. Inserted saline lock: 20 gauge in right bb antecubital area, using aseptic technique. Blood collected. 20:45 Patient has correct armband on for positive identification. Bed in low position. Call bb light in reach. 20:48 Jamee Day, RN is Primary Nurse. bb 20:58 Abdomen Limited US In Process Unspecified. EDMS 21:22 Urine collected: clean catch specimen, clear. wm 22:32 No provider procedures requiring assistance completed. IV discontinued, intact, bb bleeding controlled, No redness/swelling at site. Pressure dressing applied. Administered Medications: 20:41 Drug: Zofran (Ondansetron) 4 mg Route: IVP; Site: right antecubital; bb 21:18 Follow up: Response: No adverse reaction bb Outcome: 22:11 Discharge ordered by MD. cp 22:32 Discharged to home ambulatory. bb 22:32 Condition: stable 22:32 Discharge instructions given to patient, Instructed on discharge instructions, follow up and referral plans. medication usage, Demonstrated understanding of instructions, follow-up care, medications, Prescriptions given X 2. 22:33 Patient left the ED. bb Signatures: Dispatcher [employer] Jamee Joe RN RN bb Williams, Irene, RN RN iw Page, Corey, PA PA cp Moreno, Amanda am2 Marsh, Wendy wm Corrections: (The following items were deleted from the chart) 17:27 16:46 Patient left the ED. olamide quiñonez
[2021-09-14] MEDS ORDERED: ONDANSETRON 4 MG/2 ML VIAL ONE (20:35)
[2021-09-14 20:56] LABS: Absolute Lymphocytes (CBC) 1.8 K/uL (0.7-4.9); Hematocrit 42.4 % (36.0-45.0); Lymphocytes % 26.5 % (15.3-44.8); MPV 7.1 fL (7.6-11.3); RBC Red Blood Cell Count 4.64 M/uL (3.86-4.86)
[2021-09-14 21:06] LABS: Bilirubin Total 0.4 mg/dL (0.2-1.0); Potassium 3.8 mmol/L (3.5-5.1); Protein, Total 8.2 g/dL (6.4-8.2)
[2021-09-14 21:19] LABS: Urine Blood Trace-intact (Negative); Urine Glucose Negative (Negative); Urine Protein Negative (Negative)
[2021-09-14 21:38] LABS: Urine Bacteria <20 /HPF (<20); Urine Mucus 1+ /HPF (NONE SEEN); Urine RBC <5 /HPF (NONE SEEN)
--- NOTE | 2021-09-14 21:44 | RAD REPORT ---
EXAM DESCRIPTION: US - Abdomen Exam Limited - 09/14/2021 8:56 pm CLINICAL HISTORY: ABD PAIN COMPARISON: ABDOMINAL EXAM LIMITED dated 03/13/ FINDINGS: No gallstones, sludge or other abnormalities within the gallbladder lumen. There is no wal l thickening or pericholecystic fluid. No common duct stone or biliary tree dilatation identified. IMPRESSION: Normal gallbladder and biliary tree ultrasound.
--- NOTE | 2021-09-14 22:12 | EDPHYS ---
Physician Documentation [facility] Name: Colleen Ny Age: 51 yrs Sex: Female : 1970 Arrival Date: 09/14/2021 Time: 16:16 Bed 11 Private MD: ED Physician Vitor Watts HPI: 09/14 20:05 This 51 yrs old Female presents to ER via Ambulatory with complaints of cp Abdominal Pain, Vomiting, Dizziness. 20:05 The patient presents with abdominal pain in the epigastric area. Onset: The cp symptoms/episode began/occurred today, started after eating spicy tacos. The symptoms radiate to mid chest and throat. Associated signs and symptoms: Pertinent positives: nausea, vomiting, dizziness. The symptoms are described as burning. Historical: - Allergies: 17:28 PENICILLINS; iw - PMHx: 17:28 Hypertensive disorder; Thyroid problem; iw - PSHx: 17:28 section; throat; iw - Immunization history:: Adult Immunizations unknown. - Social history:: Smoking status: unknown. ROS: 20:10 Constitutional: Negative for body aches, chills, fever, poor PO intake. cp 20:10 Eyes: Negative for injury, pain, redness, and discharge. cp 20:10 ENT: Negative for drainage from ear(s), ear pain, sore throat, difficulty swallowing, difficulty handling secretions. 20:10 Cardiovascular: Negative for edema, palpitations. 20:10 Respiratory: Negative for cough, shortness of breath, wheezing. 20:10 Abdomen/GI: Positive for abdominal pain, nausea, vomiting, of the epigastric area, Negative for diarrhea, constipation. 20:10 Back: Negative for radiated pain. 20:10 : Negative for urinary symptoms. 20:10 Neuro: Positive for dizziness, Negative for altered mental status, headache, weakness. 20:10 All other systems are negative. Exam: 20:10 Head/Face: Normocephalic, atraumatic. cp 20:10 Constitutional: The patient appears in no acute distress, alert, awake, non-diaphoretic, non-toxic, well developed, well nourished. 20:10 Eyes: Periorbital structures: appear normal, Conjunctiva: normal, no exudate, no injection, Sclera: no appreciated abnormality, Lids and lashes: appear normal, bilaterally. 20:10 ENT: External ear(s): are unremarkable, Nose: is normal, Mouth: Lips: moist, Oral mucosa: moist, Posterior pharynx: Airway: no evidence of obstruction, patent. 20:10 Neck: ROM/movement: is normal, is supple, without pain, no range of motions limitations. 20:10 Chest/axilla: Inspection: normal. 20:10 Cardiovascular: Rate: normal, Rhythm: regular, Edema: is not appreciated, JVD: is not appreciated. 20:10 Respiratory: the patient does not display signs of respiratory distress, Respirations: normal, no use of accessory muscles, no retractions, labored breathing, is not present, Breath sounds: are clear throughout, no decreased breath sounds, no stridor, no wheezing. 20:10 Abdomen/GI: Inspection: abdomen appears normal, Bowel sounds: active, all quadrants, Palpation: soft, in all quadrants, mild abdominal tenderness, in the epigastric area. 20:10 Back: CVA tenderness, is absent. 20:10 Skin: no rash present. 20:10 Neuro: Orientation: to person, place \T\ time. Mentation: is normal. Vital Signs: 17:54 BP 134 / 67; Pulse 78; Resp 16; Temp 98.7; Pulse Ox 98% on R/A; iw 20:27 BP 151 / 60; Pulse 81; Resp 16 S; Temp 98.2(O); Pulse Ox 94% on R/A; bb 22:32 BP 141 / 55; Pulse 64; Resp 16 S; Temp 98(O); Pulse Ox 97% on R/A; bb MDM: 19:22 Patient medically screened. cp 20:00 Differential diagnosis: appendicitis, bowel obstruction, cholecystitis, Cholelithiasis, cp gastroesophageal reflux disease, pancreatitis, Peptic Ulcer Disease, Perf. Duodenal Ulcer, Perf. Gastric Ulcer, Pyelonephritis, Ureterolithiasis, urinary tract infection. 22:09 Data reviewed: vital signs, nurses notes, lab test result(s), radiologic studies, cp ultrasound. Counseling: I had a detailed discussion with the patient and/or guardian regarding: the historical points, exam findings, and any diagnostic results supporting the discharge/admit diagnosis, lab results, radiology results, to return to the emergency department if symptoms worsen or persist or if there are any questions or concerns that arise at home. Response to treatment: the patient's symptoms have markedly improved after treatment, VSS. Patient reports symptoms markedly improved. 22:10 Special discussion: Based on the patient's Hx, exam, and Dx evaluation, there is no cp indication for emergent surgery or inpatient Tx. It is understood by the patient/guardian that if the Sx's persist or worsen they need to return immediately for re-evaluation. 09/14 20:03 Order name: CBC with Diff; Complete Time: 21:12 09/14 21:48 Interpretation: Normal except: MPV 7.1. cp 09/14 20:03 Order name: CMP; Complete Time: 21:12 cp 09/14 20:03 Order name: Lipase; Complete Time: 21:12 09/14 20:03 Order name: Urine Microscopic Only; Complete Time: 21:48 09/14 21:48 Interpretation: Normal except: UWBC 5-10. 09/14 21:20 Order name: Urine Dipstick-Ancillary; Complete Time: 21:48 EDMS 09/14 21:48 Interpretation: Normal except: UBLD Trace-intact; UESTR 1+. 09/14 21:23 Order name: Urine --Ancillary (enter results) mw2 09/14 20:03 Order name: Abdomen Limited US; Complete Time: 21:48 09/14 21:48 Interpretation: Report reviewed. 09/14 20:03 Order name: IV Saline Lock; Complete Time: 20:45 09/14 20:03 Order name: Labs collected and sent; Complete Time: 20:45 09/14 20:03 Order name: Urine Dipstick-Ancillary (obtain specimen); Complete Time: 21:23 09/14 21:41 Order name: Urine Culture EDMS Administered Medications: 20:41 Drug: Zofran (Ondansetron) 4 mg Route: IVP; Site: right antecubital; bb 21:18 Follow up: Response: No adverse reaction bb Disposition Summary: 09/14/21 22:11 Discharge Ordered Location: Home cp Problem: new cp Symptoms: have improved cp Condition: Stable cp Diagnosis - Epigastric pain cp Followup: cp - With: Private Physician - When: 2 - 3 days - Reason: Worsening of condition Discharge Instructions: - Discharge Summary Sheet cp - Abdominal Pain, Adult cp - Gastroesophageal Reflux Disease, Adult cp Forms: - Medication Reconciliation Form cp - Thank You Letter cp - Antibiotic Education cp - Prescription Opioid Use cp Prescriptions: - Protonix 40 mg Oral tablet,delayed release (DR/EC) - take 1 tablet by ORAL route once daily for 8-10 days; 20 tablet; Refills: 0, cp Product Selection Permitted - Zofran 4 mg Oral Tablet - take 1 tablet by ORAL route every 12 hours As needed; 20 tablet; Refills: 0, cp Product Selection Permitted Addendum: 09/16/2021 18:37 Co-signature as Attending Physician, Vitor vargas a2 Signatures: Dispatcher [employer] EDJamee Flores RN RN bb Williams, Irene, RN RN iw Néstor Raza PA PA cp Alzahri, Mohammad, MD MD ma2 Rosalinda Rosenbaum PA PA sb3 Corrections: (The following items were deleted from the chart) 09/14 17:54 16:45 Before Triage [facility] 17:54 16:45 unknown [facility]
[2021-09-15 06:23] VITALS: BP 141/55; TEMP 98; O2SAT 97
== END 2021-09-14 22:33 | disposition home or self-care (01) ==
LOC: ER 16:15
DX: R10.13 Epigastric pain (principal); R11.2 Nausea with vomiting, unspecified; R42 Dizziness and giddiness; I10 Essential (primary) hypertension; Z88.0 Allergy status to penicillin
CPT/HCPCS: 87088; 85025; 87086; 36415; 81025; 83690; 80053; 76705; 96374; 99284; J2405; 81003; 81015

== ENCOUNTER → 2023-05-17 | Emergency (ER) | payer OTHER, SELFPAY ==
[~2023-05-17] MED LIST: DIAZEPAM 10 MG/2 ML INJ SYRINGE ONE; METOPROLOL TARTRATE 5 MG/5 ML INJ IV ONE; NA CHLORIDE 0.9% 1,000 ML ONE
--- OUTSIDE RECORDS SUMMARY | 2023-05-17 15:01 | XMS REPORT | Continuity of Care Document ---
Author Name Unknown Address [address] [facility]. [address] [place] [id number] [facility] [address] [facility]. [address] [place] [address] Care Team Providers Care Community Engagement Representative Name Role Phone Lavell Godoy Primary Care Physician [phone] Allergies, Adverse Reactions, Alerts Allergy Name Allergy Type Status Severity Reaction(s) Onset Date Inactive Date Treating Clinician Comments Source Penicill ins - CLASS Propensi ty to adverse reaction to drug Active 11-16 00:00: 00 Medications Ordered Medication Name Filled Medication Name Start Date Stop Date Current Medication? Ordering Clinician Indication Dosage Frequency Signature (SIG) Comments Components Source TAKE 1 TABLET DAILY. 2021-05-16 00:00: 00 No TAKE 1 TABLET BY MOUTH ONCE DAILY 01-31 00:00: 00 No TAKE 1 TABLET BY MOUTH ONCE DAILY 01-31 00:00: 00 No TAKE 1 TABLET DAILY. 01-25 00:00: 00 No TAKE 1 TABLET DAILY. 01-25 00:00: 00 No APPLY SPARINGLY TO AFFECTED AREA(S) TWICE DAILY 11-25 00:00: 00 No 1 APPLY SPARINGLY TO AFFECTED AREA(S) TWICE DAILY 11-25 00:00: 00 No 1 APPLY SPARINGLY TO AFFECTED AREA(S) TWICE DAILY 11-25 00:00: 00 No 1 TAKE 1 TABLET DAILY. 11-24 00:00: 00 No 60 TAKE 1 TABLET DAILY. 11-24 00:00: 00 No 60 TAKE 1 TABLET DAILY. 11-24 00:00: 00 No 60 APPLY SPARINGLY TO AFFECTED AREA(S) TWICE DAILY 11-23 00:00: 00 No 2 APPLY SPARINGLY TO AFFECTED AREA(S) TWICE DAILY 11-23 00:00: 00 No 2 TAKE 1 TABLET ONCE DAILY. 11-23 00:00: 00 No 5 TAKE 1 TABLET ONCE DAILY. 11-23 00:00: 00 No 5 APPLY SPARINGLY TO AFFECTED AREA(S) TWICE DAILY 11-23 00:00: 00 No 2 TAKE 1 TABLET ONCE DAILY. 11-23 00:00: 00 No 5 TAKE 1 TABLET DAILY. 11-17 00:00: 00 No 20 TAKE 1 TABLET DAILY. 11-17 00:00: 00 No 20 TAKE 1 TABLET DAILY. 11-17 00:00: 00 No 20 lisinopril 20 mg tablet 08-24 00:00: 00 No 1mg methimazole 5 mg tablet 08-24 00:00: 00 No 25mg nifedipine ER 60 mg tablet,exte nded release 08-24 00:00: 00 No 1mg TAKE 1 TABLET DAILY. 08-24 00:00: 00 No methimazole 5 mg tablet 08-24 00:00: 00 No 25mg nifedipine ER 60 mg tablet,exte nded release 08-24 00:00: 00 No 1mg TAKE 1 TABLET DAILY. 08-24 00:00: 00 No methimazole 5 mg tablet 08-24 00:00: 00 No 25mg nifedipine ER 60 mg tablet,exte nded release 08-24 00:00: 00 No 1mg Dose Unknown 2 00:00: 00 No Dose Unknown 2 00:00: 00 No Dose Unknown 2 00:00: 00 No nifedipine ER 60 mg tablet,exte nded release 07-12 00:00: 00 No 1mg methimazole 5 mg tablet 2 00:00: 00 No 25mg TAKE 1 TABLET DAILY. 2 00:00: 00 No Dose Unknown 2- 00:00: 00 No Dose Unknown 07-12 00:00: 00 No Dose Unknown 07-12 00:00: 00 No nifedipine ER 60 mg tablet,exte nded release 07-12 00:00: 00 No 1mg Dose Unknown 07-12 00:00: 00 No methimazole 5 mg tablet 07-12 00:00: 00 No 25mg Dose Unknown 07-12 00:00: 00 No Dose Unknown 07-12 00:00: 00 No nifedipine ER 60 mg tablet,exte nded release 07-12 00:00: 00 No 1mg methimazole 5 mg tablet 07-12 00:00: 00 No 25mg TAKE 1 TABLET DAILY. 07-12 00:00: 00 No lisinopril 20 mg tablet 07-12 00:00: 00 No 1mg Vital Signs Vital Name Observation Time Observation Value Comments S ource BP Systolic 2022-04-13 16:15:00 122 mm[Hg] BP Diastolic 2022-04-13 16:15:00 78 mm[Hg] Weight Measured 2022-04-13 16:15:00 154.60 pounds Height Measured 2022-04-13 16:15:00 61.50 inches Body Temperature 2022-04-13 16:15:00 97.80 degrees Heart Rate 2022-04-13 16:15:00 60.00 /min Respiratory Rate 2022-04-13 16:15:00 18.00 /min BP Systolic 2022-02-04 10:00:00 108 mm[Hg] BP Diastolic 2022-02-04 10:00:00 68 mm[Hg] Weight Measured 2022-02-04 10:00:00 153.00 pounds Height Measured 2022-02-04 10:00:00 61.50 inches Body Temperature 2022-02-04 10:00:00 98.10 degrees Heart Rate 2022-02-04 10:00:00 62.00 /min Respiratory Rate 2022-02-04 10:00:00 18.00 /min BP Systolic 2021-11-25 08:54:00 128 mm[Hg] BP Diastolic 2021-11-25 08:54:00 59 mm[Hg] Weight Measured 2021-11-25 08:54:00 154.80 pounds Height Measured 2021-11-25 08:54:00 61.50 inches Body Temperature 2021-11-25 08:54:00 98.50 degrees Heart Rate 2021-11-25 08:54:00 89.00 /min Respiratory Rate 2021-11-25 08:54:00 24.00 /min BP Systolic 2021-11-16 14:30:00 113 mm[Hg] BP Diastolic 2021-11-16 14:30:00 57 mm[Hg] Weight Measured 2021-11-16 14:30:00 153.80 pounds Height Measured 2021-11-16 14:30:00 61.50 inches Body Temperature 2021-11-16 14:30:00 97.50 degrees Heart Rate 2021-11-16 14:30:00 75.00 /min Respiratory Rate 2021-11-16 14:30:00 BP Systolic 2021-08-24 09:28:00 125 mm[Hg] BP Diastolic 2021-08-24 09:28:00 72 mm[Hg] Weight Measured 2021-08-24 09:28:00 153.60 pounds Height Measured 2021-08-24 09:28:00 61.50 inches Body Temperature 2021-08-24 09:28:00 98.10 degrees Heart Rate 2021-08-24 09:28:00 63.00 /min Respiratory Rate 2021-08-24 09:28:00 16.00 /min BP Systolic 2021-07-13 16:46:00 165 mm[Hg] BP Diastolic 2021-07-13 16:46:00 77 mm[Hg] Weight Measured 2021-07-13 16:46:00 154.00 pounds Height Measured 2021-07-13 16:46:00 61.50 inches Body Temperature 2021-07-13 16:46:00 98.20 degrees Heart Rate 2021-07-13 16:46:00 66.00 /min Respiratory Rate 2021-07-13 16:46:00 18.00 /min BP Systolic 2021-07-12 10:52:00 156 mm[Hg] BP Diastolic 2021-07-12 10:52:00 72 mm[Hg] Weight Measured 2021-07-12 10:52:00 154.00 pounds Height Measured 2021-07-12 10:52:00 61.50 inches Body Temperature 2021-07-12 10:52:00 98.20 degrees Heart Rate 2021-07-12 10:52:00 80.00 /min Respiratory Rate 2021-07-12 10:52:00 17.00 /min Plan of Care Planned Activity Planned Date Details Comments Source Goal Plan of Care Note [code = 43434-2] Goal Plan of Care Note [code = 36400-8] Goal Plan of Care Note [code = 87690-9] Goal Plan of Care Note [code = 75552-4] Goal Plan of Care Note [code = 07517-8] Goal Plan of Care Note [code = 13604-9] Goal Plan of Care Note [code = 54970-5] Goal Plan of Care Note [code = 23474-0] Goal Plan of Care Note [code = 76422-6] Goal Plan of Care Note [code = 55256-7] Goal Plan of Care Note [code = 45065-9] Goal Plan of Care Note [code = 47858-3] Goal Plan of Care Note [code = 48007-1] Goal Plan of Care Note [code = 37587-1] Goal Plan of Care Note [code = 06413-0] Goal Plan of Care Note [code = 95909-9] Goal Plan of Care Note [code = 67092-2] Goal Plan of Care Note [code = 02433-2] Goal Plan of Care Note [code = 29736-3] Goal Plan of Care Note [code = 27335-9] Goal Plan of Care Note [code = 33215-7] Goal Plan of Care Note [code = 38248-4] Goal Plan of Care Note [code = 55149-3] Goal Plan of Care Note [code = 62078-1] Goal Plan of Care Note [code = 76095-5] Goal Plan of Care Note [code = 27597-5] Goal Plan of Care Note [code = 79024-3] Goal Plan of Care Note [code = 37130-2] Goal Plan of Care Note [code = 24478-7] Goal Plan of Care Note [code = 45461-6] Goal Plan of Care Note [code = 77133-8] Goal Plan of Care Note [code = 15529-9] Goal Plan of Care Note [code = 51079-3] Goal Plan of Care Note [code = 14614-2] Goal Plan of Care Note [code = 28897-5] Goal Plan of Care Note [code = 52360-6] Encounters Start Date/Time End Date/Time Encounter Type Admission Type Attending [facility] Care Department Encounter ID Source 2023-03-01 08:54:40 2023-03-01 08:54:40 Outpatient SFA SFA [id number] Talon Cody 2023-02-20 08:55:13 2023-02-20 08:55:13 Outpatient SFA SFA [id number] Talon Cody 2022-12-01 13:58:37 2022-12-01 13:58:37 Outpatient SFA SFA [id number] Talon Cody 2022-06-09 11:39:25 2022-06-09 11:39:25 Outpatient SFA SFA [id number] Talon Cody 2022-06-01 09:29:27 2022-06-01 09:29:27 Outpatient SFA SFA [id number] Talon Cody 2022-05-09 08:15:32 2022-05-09 08:15:32 Outpatient SFA SFA [id number] Talon Cody 2022-04-13 16:08:07 2022-04-13 16:08:07 Outpatient SFA SFA [id number] Talon Cody 2022-04-13 00:00:00 2022-04-13 00:00:00 Outpatient Visit [id number] 2022-02-04 00:00:00 2022-02-04 00:00:00 Outpatient Visit [id number] 2021-11-25 00:00:00 2021-11-25 00:00:00 Outpatient Visit [id number] Results Test Description Test Time Test Comments Results Result Co mments Source COMPREHENSIVE METABOLIC [id number] 04:28:33* Test Item Value Reference Range Interpretation Comme nts GLUCOSE (test code = 2216) 98 MG/DL 70-99 BUN (test code = 220) 13 MG/DL 6-20 CREATININE (test code = 221) 0.60 MG/DL 0.60-1.30 eGFR (2020 CKD-EPI) (test code = 27135) 108 ML/MIN/1.73 >60 CALC BUN/CREAT (test code = 2235) 22 RATIO 6-28 SODIUM (test code = 223) 143 MEQ/L 133-146 POTASSIUM (test code = 2228) 4.3 MEQ/L 3.5-5.4 CHLORIDE (test code = 2215) 102 MEQ/L 95-107 CARBON DIOXIDE (test code = 2206) 31 MEQ/L 19-31 CALCIUM (test code = 2209) 9.9 MG/DL 8.5-10.5 PROTEIN, TOTAL (test code = 2229) 7.4 G/DL 6.1-8.3 ALBUMIN (test code = 2201) 4.8 G/DL 3.5-5.2 CALC GLOBULIN (test code = 2240) 2.6 G/DL 1.9-3.7 CALC A/G RATIO (test code = 223) 1.8 RATIO 1.0-2.6 BILIRUBIN, TOTAL (test code = 2207) 0.4 MG/DL See_Comment [Automated me ssage] The system which generated this result transmitted reference range: <=1.2. The reference range was not used to interpret this result as normal/abnormal. ALKALINE PHOSPHATASE (test code = 2204) 82 U/L 40-132 AST (test code = 2218) 15 U/L 9-40 ALT (test code = 2219) 13 U/L 5-40 LIPID [id number] 04:28:33* Test Item Value Reference Range Interpretation Comme nts CHOLESTEROL (test code = 2210) 284 MG/DL <200 H TRIGLYCERIDES (test code = 2232) 294 MG/DL <150 H HDL CHOLESTEROL (test code = 2220) 57 MG/DL >39 CALC LDL CHOL (test code = 2237) 177 MG/DL <100 H NOTE: CALCULATED LDL IS BASED ON PAUL-LUQUE METHOD WHICHINCLUDES ADJUSTABLE TRIGLYCERIDE:VLDL CHOLESTEROL RATIO.THIS FACTOR VARIES BY MEASURED TRIGLYCERIDE AND NON-HDLCHOLESTEROL CONCENTRATIONS WITH INCREASED CALCULATED LDL SEENIN HIGHER TRIGLYCERIDE OR LOWER NON-HDL SPECIMENS. FOR MOREINFORMATION, SEE CLIENT ANNOUNCEMENT AT [email or web address] RISK RATIO LDL/HDL (test code = 2238) 3.11 RATIO <3.22 CBC W/AUTO DIFF WITH [id number] 02:07:58* Test Item Value Reference Range Interpretation Comme nts WBC (test code = 1001) 5.3 K/UL 3.5-11.0 RBC (test code = 1002) 4.46 M/UL 3.80-5.40 HEMOGLOBIN (test code = 1003) 13.8 G/DL 11.5-15.5 HEMATOCRIT (test code = 1004) 41.3 % 34.0-45.0 MCV (test code = 1005) 92.6 fL 80.0-99.0 MCH (test code = 1006) 30.9 PG 25.0-33.0 MCHC (test code = 1007) 33.4 G/DL 31.0-36.0 RDW (test code = 1038) 12.8 % 11.5-15.0 NEUTROPHILS (test code = 1008) 55.8 % LYMPHOCYTES (test code = 1010) 32.6 % MONOCYTES (test code = 1011) 8.0 % EOSINOPHILS (test code = 1012) 2.1 % BASOPHILS (test code = 1013) 1.1 % IMMATURE GRANULOCYTES (test code = 1036) 0.4 % NUCLEATED RBCS (test code = 1065) 0.0 /100 WBC'S See_Comment [Automated messa ge] The system which generated this result transmitted reference range: 0.0. The reference range was not used to interpret this result as normal/abnormal. PLATELET COUNT (test code = 1015) 315 K/UL 130-400 ABSOLUTE NEUTROPHILS (test code = 1066) 2.93 K/UL 1.50-7.50 ABSOLUTE LYMPHOCYTES (test code = 1067) 1.71 K/UL 1.00-4.00 ABSOLUTE MONOCYTES (test code = 1068) 0.42 K/UL 0.20-1.00 ABSOLUTE EOSINOPHILS (test code = 1040) 0.11 K/UL 0.00-0.50 ABSOLUTE BASOPHILS (test code = 1069) 0.06 K/UL 0.00-0.20 ABS IMMATURE GRANULOCYTES (test code = 1020) 0.02 K/UL 0.00-0.10 ABS NUCLEATED RBCS (test code = 32634) 0.00 K/UL 0.00-0.11 TSH, THIRD [id number] 03:50:53* Test Item Value Reference Range Interpretation Comme nts TSH, THIRD GENERATION (test code = 2821) 2.280 UIU/ML 0.400-4.100 UNLESS OTHERWISE INDICATED, ALL TESTING PERFORMED [facility] [address] [place] [address] CUSTOMER ADVOCACY MANAGER: JUVENAL LEY M.D. CLIA NUMBER [id number] [place]. [id number] TSH, THIRD [id number] 05:09:03* Test Item Value Reference Range Interpretation Comme nts TSH, THIRD GENERATION (test code = 2821) 6.660 UIU/ML 0.400-4.100 H UNLESS OTHERWISE INDICATED, ALL TESTING PERFORMED [facility] [address] [place] [address] CUSTOMER ADVOCACY MANAGER: JUVENAL LEY M.D. CLIA NUMBER [id number] [place]. [id number] TSH, THIRD [id number] 06:49:15* Test Item Value Reference Range Interpretation Comme nts TSH, THIRD GENERATION (test code = 2821) 52.600 UIU/ML 0.400-4.100 H UNLESS OTHERWISE INDICATED, ALL TESTING PERFORMED [facility] [address] [place] [address] CUSTOMER ADVOCACY MANAGER: JUVENAL LEY M.D. CLIA NUMBER [id number] [place]. [id number] COMPREHENSIVE METABOLIC [id number] 05:59:39* Test Item Value Reference Range Interpretation Comme nts GLUCOSE (test code = 2217) 90 MG/DL 70-99 BUN (test code = 2207) 9 MG/DL 6-20 CREATININE (test code = 2213) 0.80 MG/DL 0.60-1.30 eGFR (2020 CKD-EPI) (test code = 37766) 89 ML/MIN/1.73 >60 CALC BUN/CREAT (test code = 2234) 11 RATIO 6-28 SODIUM (test code = 2230) 145 MEQ/L 133-146 POTASSIUM (test code = 2227) 4.4 MEQ/L 3.5-5.4 CHLORIDE (test code = 2214) 105 MEQ/L 95-107 CARBON DIOXIDE (test code = 2205) 29 MEQ/L 19-31 CALCIUM (test code = 2208) 9.5 MG/DL 8.5-10.5 PROTEIN, TOTAL (test code = 2228) 7.6 G/DL 6.1-8.3 ALBUMIN (test code = 2200) 4.9 G/DL 3.5-5.2 CALC GLOBULIN (test code = 2239) 2.7 G/DL 1.9-3.7 CALC A/G RATIO (test code = 2233) 1.8 RATIO 1.0-2.6 BILIRUBIN, TOTAL (test code = 2206) 0.6 MG/DL See_Comment [Automated me ssage] The system which generated this result transmitted reference range: <=1.2. The reference range was not used to interpret this result as normal/abnormal. ALKALINE PHOSPHATASE (test code = 2203) 87 U/L 40-132 AST (test code = 2217) 16 U/L 9-40 ALT (test code = 2218) 11 U/L 5-40 LIPID [id number] 05:59:39* Test Item Value Reference Range Interpretation Comme nts CHOLESTEROL (test code = 2209) 310 MG/DL <200 H TRIGLYCERIDES (test code = 2232) 187 MG/DL <150 H HDL CHOLESTEROL (test code = 2220) 59 MG/DL >39 CALC LDL CHOL (test code = 2237) 215 MG/DL <100 H NOTE: CALCULATED LDL IS BASED ON PAUL-LUQUE METHOD WHICHINCLUDES ADJUSTABLE TRIGLYCERIDE:VLDL CHOLESTEROL RATIO.THIS FACTOR VARIES BY MEASURED TRIGLYCERIDE AND NON-HDLCHOLESTEROL CONCENTRATIONS WITH INCREASED CALCULATED LDL SEENIN HIGHER TRIGLYCERIDE OR LOWER NON-HDL SPECIMENS. FOR MOREINFORMATION, SEE CLIENT ANNOUNCEMENT AT [email or web address] /CalcLDL-C RISK RATIO LDL/HDL (test code = 2238) 3.64 RATIO <3.22 H TSH, THIRD [id number] 00:00:00* Test Item Value Reference Range Interpretation Comme nts TSH, THIRD GENERATION (test code = 2821) 52.600 UIU/ML TSH, THIRD [id number] 00:00:00* Test Item Value Reference Range Interpretation Comme nts TSH, THIRD GENERATION (test code = 2821) 52.600 UIU/ML TSH, THIRD [id number] 00:00:00* Test Item Value Reference Range Interpretation Comme nts TSH, THIRD GENERATION (test code = 2821) 52.600 UIU/ML COMPREHENSIVE METABOLIC [id number] 00:00:00* Test Item Value Reference Range Interpretation Comme nts GLUCOSE (test code = 2217) 90 MG/DL BUN (test code = 2208) 9 MG/DL CREATININE (test code = 2214) 0.80 MG/DL eGFR (2020 CKD-EPI) (test co de = 95300) 89 ML/MIN/1.73 CALC BUN/CREAT (test code = 2235) 11 RATIO SODIUM (test code = 2231) 145 MEQ/L POTASSIUM (test code = 2228) 4.4 MEQ/L CHLORIDE (test code = 2215) 105 MEQ/L CARBON DIOXIDE (test code = 2206) 29 MEQ/L CALCIUM (test code = 2209) 9.5 MG/DL PROTEIN, TOTAL (test code = 2229) 7.6 G/DL ALBUMIN (test code = 2201) 4.9 G/DL CALC GLOBULIN (test code = 2240) 2.7 G/DL CALC A/G RATIO (test code = 2234) 1.8 RATIO BILIRUBIN, TOTAL (test code = 2207) 0.6 MG/DL ALKALINE PHOSPHATASE (test code = 2204) 87 U/L AST (test code = 2218) 16 U/L ALT (test code = 2219) 11 U/L COMPREHENSIVE METABOLIC [id number] 00:00:00* Test Item Value Reference Range Interpretation Comme nts GLUCOSE (test code = 2217) 90 MG/DL BUN (test code = 2208) 9 MG/DL CREATININE (test code = 2214) 0.80 MG/DL eGFR (2020 CKD-EPI) (test co de = 85347) 89 ML/MIN/1.73 CALC BUN/CREAT (test code = 2235) 11 RATIO SODIUM (test code = 2231) 145 MEQ/L POTASSIUM (test code = 2228) 4.4 MEQ/L CHLORIDE (test code = 2215) 105 MEQ/L CARBON DIOXIDE (test code = 2206) 29 MEQ/L CALCIUM (test code = 2209) 9.5 MG/DL PROTEIN, TOTAL (test code = 2229) 7.6 G/DL ALBUMIN (test code = 2201) 4.9 G/DL CALC GLOBULIN (test code = 2240) 2.7 G/DL CALC A/G RATIO (test code = 2234) 1.8 RATIO BILIRUBIN, TOTAL (test code = 2207) 0.6 MG/DL ALKALINE PHOSPHATASE (test code = 2204) 87 U/L AST (test code = 2218) 16 U/L ALT (test code = 2219) 11 U/L LIPID [id number] 00:00:00* Test Item Value Reference Range Interpretation Comme nts CHOLESTEROL (test code = 2210) 310 MG/DL TRIGLYCERIDES (test code = 2232) 187 MG/DL HDL CHOLESTEROL (test code = 2220) 59 MG/DL CALC LDL CHOL (test code = 2237) 215 MG/DL RISK RATIO LDL/HDL (test cod e = 2238) 3.64 RATIO LIPID [id number] 00:00:00* Test Item Value Reference Range Interpretation Comme nts CHOLESTEROL (test code = 2210) 310 MG/DL TRIGLYCERIDES (test code = 2232) 187 MG/DL HDL CHOLESTEROL (test code = 2220) 59 MG/DL CALC LDL CHOL (test code = 2237) 215 MG/DL RISK RATIO LDL/HDL (test cod e = 2238) 3.64 RATIO HEMOGLOBIN [id number] 11:24:14* Test Item Value Reference Range Interpretation Comme nts HEMOGLOBIN A1c (test code = 93674) 5.3 % 4.2-5.6 TSH, THIRD [id number] 07:00:37* Test Item Value Reference Range Interpretation Comme nts TSH, THIRD GENERATION (test code = 2821) 68.100 UIU/ML 0.400-4.100 H UNLESS OTHERWISE INDICATED, ALL TESTING PERFORMED [facility] [address] [place] [address] CUSTOMER ADVOCACY MANAGER: JUVENAL LEY M.D. [place] NUMBER [id number] [facility] [place]. [id number] COMPREHENSIVE METABOLIC [id number] 05:10:04* Test Item Value Reference Range Interpretation Comme nts GLUCOSE (test code = 2216) 90 MG/DL 70-99 BUN (test code = 2207) 10 MG/DL 6-20 CREATININE (test code = 221) 0.75 MG/DL 0.60-1.30 eGFR (2020 CKD-EPI) (test code = 28041) 96 ML/MIN/1.73 >60 CALC BUN/CREAT (test code = 5) 13 RATIO 6-28 SODIUM (test code = 223) 141 MEQ/L 133-146 POTASSIUM (test code = 2228) 4.5 MEQ/L 3.5-5.4 CHLORIDE (test code = 2214) 102 MEQ/L 95-107 CARBON DIOXIDE (test code = 2205) 29 MEQ/L 19-31 CALCIUM (test code = 2209) 9.2 MG/DL 8.5-10.5 PROTEIN, TOTAL (test code = 222) 7.5 G/DL 6.1-8.3 ALBUMIN (test code = 2201) 4.7 G/DL 3.5-5.2 CALC GLOBULIN (test code = 2240) 2.8 G/DL 1.9-3.7 CALC A/G RATIO (test code = 223) 1.7 RATIO 1.0-2.6 BILIRUBIN, TOTAL (test code = 220) 0.5 MG/DL See_Comment [Automated me ssage] The system which generated this result transmitted reference range: <=1.2. The reference range was not used to interpret this result as normal/abnormal. ALKALINE PHOSPHATASE (test code = 2204) 86 U/L 40-130 AST (test code = 2218) 20 U/L 9-40 ALT (test code = 2219) 12 U/L 5-40 LIPID [id number] 05:10:04* Test Item Value Reference Range Interpretation Comme nts CHOLESTEROL (test code = 2210) 331 MG/DL <200 H TRIGLYCERIDES (test code = 2232) 178 MG/DL <150 H HDL CHOLESTEROL (test code = 2220) 61 MG/DL >39 CALC LDL CHOL (test code = 2237) 235 MG/DL <100 H NOTE: CALCULATED LDL IS BASED ON PAUL-LUQUE METHOD WHICHINCLUDES ADJUSTABLE TRIGLYCERIDE:VLDL CHOLESTEROL RATIO.THIS FACTOR VARIES BY MEASURED TRIGLYCERIDE AND NON-HDLCHOLESTEROL CONCENTRATIONS WITH INCREASED CALCULATED LDL SEENIN HIGHER TRIGLYCERIDE OR LOWER NON-HDL SPECIMENS. FOR MOREINFORMATION, SEE CLIENT ANNOUNCEMENT AT [email or web address] /CalcLDL-C RISK RATIO LDL/HDL (test code = 2238) 3.85 RATIO <3.22 H HEMOGLOBIN [id number] 00:00:00* Test Item Value Reference Range Interpretation Comme nts HEMOGLOBIN A1c (test code = 67528) 5.3 % HEMOGLOBIN [id number] 00:00:00* Test Item Value Reference Range Interpretation Comme nts HEMOGLOBIN A1c (test code = 76100) 5.3 % HEMOGLOBIN [id number] 00:00:00* Test Item Value Reference Range Interpretation Comme nts HEMOGLOBIN A1c (test code = 71253) 5.3 % [id number] 00:00:00* Test Item Value Reference Range Interpretation Comme nts TSH, THIRD GENERATION (test code = 2821) 68.100 UIU/ML [id number] 00:00:00* Test Item Value Reference Range Interpretation Comme nts TSH, THIRD GENERATION (test code = 2821) 68.100 UIU/ML [id number] 00:00:00* Test Item Value Reference Range Interpretation Comme nts TSH, THIRD GENERATION (test code = 2821) 68.100 UIU/ML COMPREHENSIVE METABOLIC [id number] 00:00:00* Test Item Value Reference Range Interpretation Comme nts GLUCOSE (test code = 2217) 90 MG/DL BUN (test code = 2207) 10 MG/DL CREATININE (test code = 2214) 0.75 MG/DL eGFR (2020 CKD-EPI) (test co de = 47928) 96 ML/MIN/1.73 CALC BUN/CREAT (test code = 2235) 13 RATIO SODIUM (test code = 2230) 141 MEQ/L POTASSIUM (test code = 8) 4.5 MEQ/L CHLORIDE (test code = 2215) 102 MEQ/L CARBON DIOXIDE (test code = 2206) 29 MEQ/L CALCIUM (test code = 2209) 9.2 MG/DL PROTEIN, TOTAL (test code = 2229) 7.5 G/DL ALBUMIN (test code = 2201) 4.7 G/DL CALC GLOBULIN (test code = 2240) 2.8 G/DL CALC A/G RATIO (test code = 2234) 1.7 RATIO BILIRUBIN, TOTAL (test code = 2207) 0.5 MG/DL ALKALINE PHOSPHATASE (test code = 2204) 86 U/L AST (test code = 2218) 20 U/L ALT (test code = 2219) 12 U/L LIPID [id number] 00:00:00* Test Item Value Reference Range Interpretation Comme nts CHOLESTEROL (test code = 2210) 331 MG/DL TRIGLYCERIDES (test code = 2232) 178 MG/DL HDL CHOLESTEROL (test code = 2220) 61 MG/DL CALC LDL CHOL (test code = 2237) 235 MG/DL RISK RATIO LDL/HDL (test cod e = 2238) 3.85 RATIO HEMOGLOBIN [id number] 00:00:00* Test Item Value Reference Range Interpretation Comme nts HEMOGLOBIN A1c (test code = 09640) 5.3 % HEMOGLOBIN [id number] 00:00:00* Test Item Value Reference Range Interpretation Comme nts HEMOGLOBIN A1c (test code = 45660) 5.3 % [id number] 00:00:00* Test Item Value Reference Range Interpretation Comme nts TSH, THIRD GENERATION (test code = 2821) 68.100 UIU/ML [id number] 00:00:00* Test Item Value Reference Range Interpretation Comme nts TSH, THIRD GENERATION (test code = 2821) 68.100 UIU/ML COMPREHENSIVE METABOLIC [id number] 00:00:00* Test Item Value Reference Range Interpretation Comme nts GLUCOSE (test code = 2217) 90 MG/DL BUN (test code = 2208) 10 MG/DL CREATININE (test code = 2214) 0.75 MG/DL eGFR (2020 CKD-EPI) (test co de = 53150) 96 ML/MIN/1.73 CALC BUN/CREAT (test code = 2235) 13 RATIO SODIUM (test code = 2231) 141 MEQ/L POTASSIUM (test code = 2228) 4.5 MEQ/L CHLORIDE (test code = 2215) 102 MEQ/L CARBON DIOXIDE (test code = 2206) 29 MEQ/L CALCIUM (test code = 2209) 9.2 MG/DL PROTEIN, TOTAL (test code = 2229) 7.5 G/DL ALBUMIN (test code = 2201) 4.7 G/DL CALC GLOBULIN (test code = 2240) 2.8 G/DL CALC A/G RATIO (test code = 2234) 1.7 RATIO BILIRUBIN, TOTAL (test code = 2207) 0.5 MG/DL ALKALINE PHOSPHATASE (test code = 2204) 86 U/L AST (test code = 2218) 20 U/L ALT (test code = 2219) 12 U/L COMPREHENSIVE METABOLIC [id number] 00:00:00* Test Item Value Reference Range Interpretation Comme nts GLUCOSE (test code = 2217) 90 MG/DL BUN (test code = 2208) 10 MG/DL CREATININE (test code = 2214) 0.75 MG/DL eGFR (2020 CKD-EPI) (test co de = 01611) 96 ML/MIN/1.73 CALC BUN/CREAT (test code = 2235) 13 RATIO SODIUM (test code = 2231) 141 MEQ/L POTASSIUM (test code = 2228) 4.5 MEQ/L CHLORIDE (test code = 2215) 102 MEQ/L CARBON DIOXIDE (test code = 2206) 29 MEQ/L CALCIUM (test code = 2209) 9.2 MG/DL PROTEIN, TOTAL (test code = 2229) 7.5 G/DL ALBUMIN (test code = 2201) 4.7 G/DL CALC GLOBULIN (test code = 2240) 2.8 G/DL CALC A/G RATIO (test code = 2234) 1.7 RATIO BILIRUBIN, TOTAL (test code = 2207) 0.5 MG/DL ALKALINE PHOSPHATASE (test code = 2204) 86 U/L AST (test code = 2218) 20 U/L ALT (test code = 2219) 12 U/L LIPID [id number] 00:00:00* Test Item Value Reference Range Interpretation Comme nts CHOLESTEROL (test code = 2210) 331 MG/DL TRIGLYCERIDES (test code = 2232) 178 MG/DL HDL CHOLESTEROL (test code = 2220) 61 MG/DL CALC LDL CHOL (test code = 2237) 235 MG/DL RISK RATIO LDL/HDL (test cod e = 2238) 3.85 RATIO LIPID [id number] 00:00:00* Test Item Value Reference Range Interpretation Comme nts CHOLESTEROL (test code = 2210) 331 MG/DL TRIGLYCERIDES (test code = 2232) 178 MG/DL HDL CHOLESTEROL (test code = 2220) 61 MG/DL CALC LDL CHOL (test code = 2237) 235 MG/DL RISK RATIO LDL/HDL (test cod e = 2238) 3.85 RATIO HEMOGLOBIN [id number] 00:00:00* Test Item Value Reference Range Interpretation Comme nts HEMOGLOBIN A1c (test code = 35649) 5.3 % HEMOGLOBIN [id number] 00:00:00* Test Item Value Reference Range Interpretation Comme nts HEMOGLOBIN A1c (test code = 86060) 5.3 % HEMOGLOBIN [id number] 00:00:00* Test Item Value Reference Range Interpretation Comme nts HEMOGLOBIN A1c (test code = 28256) 5.3 % [id number] 00:00:00* Test Item Value Reference Range Interpretation Comme nts TSH, THIRD GENERATION (test code = 2821) 68.100 UIU/ML [id number] 00:00:00* Test Item Value Reference Range Interpretation Comme nts TSH, THIRD GENERATION (test code = 2821) 68.100 UIU/ML [id number] 00:00:00* Test Item Value Reference Range Interpretation Comme nts TSH, THIRD GENERATION (test code = 2821) 68.100 UIU/ML COMPREHENSIVE METABOLIC [id number] 00:00:00* Test Item Value Reference Range Interpretation Comme nts GLUCOSE (test code = 2217) 90 MG/DL BUN (test code = 2208) 10 MG/DL CREATININE (test code = 2214) 0.75 MG/DL eGFR (2020 CKD-EPI) (test co de = 61468) 96 ML/MIN/1.73 CALC BUN/CREAT (test code = 2235) 13 RATIO SODIUM (test code = 2231) 141 MEQ/L POTASSIUM (test code = 2228) 4.5 MEQ/L CHLORIDE (test code = 2215) 102 MEQ/L CARBON DIOXIDE (test code = 2206) 29 MEQ/L CALCIUM (test code = 2209) 9.2 MG/DL PROTEIN, TOTAL (test code = 2229) 7.5 G/DL ALBUMIN (test code = 2201) 4.7 G/DL CALC GLOBULIN (test code = 2240) 2.8 G/DL CALC A/G RATIO (test code = 2234) 1.7 RATIO BILIRUBIN, TOTAL (test code = 2207) 0.5 MG/DL ALKALINE PHOSPHATASE (test code = 2204) 86 U/L AST (test code = 2218) 20 U/L ALT (test code = 2219) 12 U/L COMPREHENSIVE METABOLIC [id number] 00:00:00* Test Item Value Reference Range Interpretation Comme nts GLUCOSE (test code = 2217) 90 MG/DL BUN (test code = 2208) 10 MG/DL CREATININE (test code = 2214) 0.75 MG/DL eGFR (2020 CKD-EPI) (test co de = 89737) 96 ML/MIN/1.73 CALC BUN/CREAT (test code = 2235) 13 RATIO SODIUM (test code = 2231) 141 MEQ/L POTASSIUM (test code = 2228) 4.5 MEQ/L CHLORIDE (test code = 2215) 102 MEQ/L CARBON DIOXIDE (test code = 2206) 29 MEQ/L CALCIUM (test code = 2209) 9.2 MG/DL PROTEIN, TOTAL (test code = 2229) 7.5 G/DL ALBUMIN (test code = 2201) 4.7 G/DL CALC GLOBULIN (test code = 2240) 2.8 G/DL CALC A/G RATIO (test code = 2234) 1.7 RATIO BILIRUBIN, TOTAL (test code = 2207) 0.5 MG/DL ALKALINE PHOSPHATASE (test code = 2204) 86 U/L AST (test code = 2218) 20 U/L ALT (test code = 2219) 12 U/L LIPID [id number] 00:00:00* Test Item Value Reference Range Interpretation Comme nts CHOLESTEROL (test code = 2210) 331 MG/DL TRIGLYCERIDES (test code = 2232) 178 MG/DL HDL CHOLESTEROL (test code = 2220) 61 MG/DL CALC LDL CHOL (test code = 2237) 235 MG/DL RISK RATIO LDL/HDL (test cod e = 2238) 3.85 RATIO LIPID [id number] 00:00:00* Test Item Value Reference Range Interpretation Comme nts CHOLESTEROL (test code = 2210) 331 MG/DL TRIGLYCERIDES (test code = 2232) 178 MG/DL HDL CHOLESTEROL (test code = 2220) 61 MG/DL CALC LDL CHOL (test code = 2237) 235 MG/DL RISK RATIO LDL/HDL (test cod e = 2238) 3.85 RATIO CBC W/AUTO DIFF WITH [id number] 06:38:12* Test Item Value Reference Range Interpretation Comme nts WBC (test code = 1001) 6.8 K/UL 3.5-11.0 RBC (test code = 1002) 4.41 M/UL 3.80-5.40 HEMOGLOBIN (test code = 1003) 14.0 G/DL 11.5-15.5 HEMATOCRIT (test code = 1004) 40.1 % 34.0-45.0 MCV (test code = 1005) 90.9 fL 80.0-99.0 MCH (test code = 1006) 31.7 PG 25.0-33.0 MCHC (test code = 1007) 34.9 G/DL 31.0-36.0 RDW (test code = 1038) 12.7 % 11.5-15.0 NEUTROPHILS (test code = 1008) 62.9 % LYMPHOCYTES (test code = 1010) 27.4 % MONOCYTES (test code = 1011) 6.2 % EOSINOPHILS (test code = 1012) 2.8 % BASOPHILS (test code = 1013) 0.6 % IMMATURE GRANULOCYTES (test code = 1036) 0.1 % NUCLEATED RBCS (test code = 1065) 0.0 /100 WBC'S See_Comment [Automated messa ge] The system which generated this result transmitted reference range: 0.0. The reference range was not used to interpret this result as normal/abnormal. PLATELET COUNT (test code = 1015) 315 K/UL 130-400 ABSOLUTE NEUTROPHILS (test code = 1066) 4.25 K/UL 1.50-7.50 ABSOLUTE LYMPHOCYTES (test code = 1067) 1.85 K/UL 1.00-4.00 ABSOLUTE MONOCYTES (test code = 1068) 0.42 K/UL 0.20-1.00 ABSOLUTE EOSINOPHILS (test code = 1040) 0.19 K/UL 0.00-0.50 ABSOLUTE BASOPHILS (test code = 1069) 0.04 K/UL 0.00-0.20 ABS IMMATURE GRANULOCYTES (test code = 1020) 0.01 K/UL 0.00-0.10 ABS NUCLEATED RBCS (test code = 38073) 0.00 K/UL 0.00-0.11 TSH, THIRD [id number] 06:06:31* Test Item Value Reference Range Interpretation Comme nts TSH, THIRD GENERATION (test code = 2821) 3.310 UIU/ML 0.400-4.100 UNLESS OTHERWISE INDICATED, ALL TESTING PERFORMED [facility] [address] [facility] [place] [address] CUSTOMER ADVOCACY MANAGER: JUVENAL LEY M.D. CLIA NUMBER [id number] [facility] [place]. [id number] LIPID [id number] 03:40:20* Test Item Value Reference Range Interpretation Comme nts CHOLESTEROL (test code = 2210) 278 MG/DL <200 H TRIGLYCERIDES (test code = 2232) 389 MG/DL <150 H HDL CHOLESTEROL (test code = 2220) 51 MG/DL >39 CALC LDL CHOL (test code = 2237) 161 MG/DL <100 H NOTE: CALCULATED LDL IS BASED ON PAUL-LUQUE METHOD WHICHINCLUDES ADJUSTABLE TRIGLYCERIDE:VLDL CHOLESTEROL RATIO.THIS FACTOR VARIES BY MEASURED TRIGLYCERIDE AND NON-HDLCHOLESTEROL CONCENTRATIONS WITH INCREASED CALCULATED LDL SEENIN HIGHER TRIGLYCERIDE OR LOWER NON-HDL SPECIMENS. FOR MOREINFORMATION, SEE CLIENT ANNOUNCEMENT AT [email or web address] RISK RATIO LDL/HDL (test code = 2238) 3.16 RATIO <3.22 COMPREHENSIVE METABOLIC [id number] 03:40:20* Test Item Value Reference Range Interpretation Comme nts GLUCOSE (test code = 2217) 104 MG/DL 70-99 H BUN (test code = 2208) 11 MG/DL 6-20 CREATININE (test code = 2214) 0.51 MG/DL 0.60-1.30 L eGFR (2020 CKD-EPI) (test code = 16910) 113 ML/MIN/1.73 >60 CALC BUN/CREAT (test code = 2235) 22 RATIO 6-28 SODIUM (test code = 2231) 143 MEQ/L 133-146 POTASSIUM (test code = 2228) 4.0 MEQ/L 3.5-5.4 CHLORIDE (test code = 2215) 102 MEQ/L 95-107 CARBON DIOXIDE (test code = 2206) 29 MEQ/L 19-31 CALCIUM (test code = 2209) 9.1 MG/DL 8.5-10.5 PROTEIN, TOTAL (test code = 2229) 7.5 G/DL 6.1-8.3 ALBUMIN (test code = 2201) 4.7 G/DL 3.5-5.2 CALC GLOBULIN (test code = 2240) 2.8 G/DL 1.9-3.7 CALC A/G RATIO (test code = 2234) 1.7 RATIO 1.0-2.6 BILIRUBIN, TOTAL (test code = 2207) 0.3 MG/DL See_Comment [Automated me ssage] The system which generated this result transmitted reference range: <=1.2. The reference range was not used to interpret this result as normal/abnormal. ALKALINE PHOSPHATASE (test code = 2203) 99 U/L 40-130 AST (test code = 2218) 17 U/L 9-40 ALT (test code = 2219) 13 U/L 5-40 LIPID [id number] 00:00:00* Test Item Value Reference Range Interpretation Comme nts CHOLESTEROL (test code = 2210) 278 MG/DL TRIGLYCERIDES (test code = 2232) 389 MG/DL HDL CHOLESTEROL (test code = 2220) 51 MG/DL CALC LDL CHOL (test code = 2237) 161 MG/DL RISK RATIO LDL/HDL (test cod e = 2238) 3.16 RATIO COMPREHENSIVE METABOLIC [id number] 00:00:00* Test Item Value Reference Range Interpretation Comme nts GLUCOSE (test code = 2217) 104 MG/DL BUN (test code = 2208) 11 MG/DL CREATININE (test code = 2214) 0.51 MG/DL eGFR (2020 CKD-EPI) (test code = 94918) 113 ML/MIN/1.73 CALC BUN/CREAT (test code = 2235) 22 RATIO SODIUM (test code = 2231) 143 MEQ/L POTASSIUM (test code = 2228) 4.0 MEQ/L CHLORIDE (test code = 2215) 102 MEQ/L CARBON DIOXIDE (test code = 2206) 29 MEQ/L CALCIUM (test code = 2209) 9.1 MG/DL PROTEIN, TOTAL (test code = 2229) 7.5 G/DL ALBUMIN (test code = 2201) 4.7 G/DL CALC GLOBULIN (test code = 2240) 2.8 G/DL CALC A/G RATIO (test code = 2234) 1.7 RATIO BILIRUBIN, TOTAL (test code = 2207) 0.3 MG/DL ALKALINE PHOSPHATASE (test code = 2204) 99 U/L AST (test code = 2218) 17 U/L ALT (test code = 2219) 13 U/L COMPREHENSIVE METABOLIC [id number] 00:00:00* Test Item Value Reference Range Interpretation Comme nts GLUCOSE (test code = 2217) 104 MG/DL BUN (test code = 2208) 11 MG/DL CREATININE (test code = 2214) 0.51 MG/DL eGFR (2020 CKD-EPI) (test code = 17554) 113 ML/MIN/1.73 CALC BUN/CREAT (test code = 2235) 22 RATIO SODIUM (test code = 2231) 143 MEQ/L POTASSIUM (test code = 2228) 4.0 MEQ/L CHLORIDE (test code = 2215) 102 MEQ/L CARBON DIOXIDE (test code = 2206) 29 MEQ/L CALCIUM (test code = 2209) 9.1 MG/DL PROTEIN, TOTAL (test code = 2229) 7.5 G/DL ALBUMIN (test code = 2201) 4.7 G/DL CALC GLOBULIN (test code = 2240) 2.8 G/DL CALC A/G RATIO (test code = 2234) 1.7 RATIO BILIRUBIN, TOTAL (test code = 2207) 0.3 MG/DL ALKALINE PHOSPHATASE (test code = 2204) 99 U/L AST (test code = 2218) 17 U/L ALT (test code = 2219) 13 U/L [id number] 00:00:00* Test Item Value Reference Range Interpretation Comme nts TSH, THIRD GENERATION (test code = 2821) 3.310 UIU/ML [id number] 00:00:00* Test Item Value Reference Range Interpretation Comme nts TSH, THIRD GENERATION (test code = 2821) 3.310 UIU/ML [id number] 00:00:00* Test Item Value Reference Range Interpretation Comme nts TSH, THIRD GENERATION (test code = 2821) 3.310 UIU/ML CBC W/AUTO [id number] 00:00:00* Test Item Value Reference Range Interpretation Comme nts WBC (test code = 1001) 6.8 K/UL RBC (test code = 1002) 4.41 M/UL HEMOGLOBIN (test code = 1003) 14.0 G/DL HEMATOCRIT (test code = 1004) 40.1 % MCV (test code = 1005) 90.9 fL MCH (test code = 1006) 31.7 PG MCHC (test code = 1007) 34.9 G/DL RDW (test code = 1038) 12.7 % NEUTROPHILS (test code = 1008) 62.9 % LYMPHOCYTES (test code = 1010) 27.4 % MONOCYTES (test code = 1011) 6.2 % EOSINOPHILS (test code = 1012) 2.8 % BASOPHILS (test code = 1013) 0.6 % IMMATURE GRANULOCYTES (test code = 1036) 0.1 % NUCLEATED RBCS (test code = 1065) 0.0 /100WBC'S PLATELET COUNT (test code = 1015) 315 K/UL ABSOLUTE NEUTROPHILS (test c ode = 1066) 4.25 K/UL ABSOLUTE LYMPHOCYTES (test c ode = 1067) 1.85 K/UL ABSOLUTE MONOCYTES (test cod e = 1068) 0.42 K/UL ABSOLUTE EOSINOPHILS (test c ode = 1040) 0.19 K/UL ABSOLUTE BASOPHILS (test cod e = 1069) 0.04 K/UL ABS IMMATURE GRANULOCYTES (t est code = 1020) 0.01 K/UL ABS NUCLEATED RBCS (test cod e = 74387) 0.00 K/UL CBC W/AUTO [id number] 00:00:00* Test Item Value Reference Range Interpretation Comme nts WBC (test code = 1001) 6.8 K/UL RBC (test code = 1002) 4.41 M/UL HEMOGLOBIN (test code = 1003) 14.0 G/DL HEMATOCRIT (test code = 1004) 40.1 % MCV (test code = 1005) 90.9 fL MCH (test code = 1006) 31.7 PG MCHC (test code = 1007) 34.9 G/DL RDW (test code = 1038) 12.7 % NEUTROPHILS (test code = 1008) 62.9 % LYMPHOCYTES (test code = 1010) 27.4 % MONOCYTES (test code = 1011) 6.2 % EOSINOPHILS (test code = 1012) 2.8 % BASOPHILS (test code = 1013) 0.6 % IMMATURE GRANULOCYTES (test code = 1036) 0.1 % NUCLEATED RBCS (test code = 1065) 0.0 /100WBC'S PLATELET COUNT (test code = 1015) 315 K/UL ABSOLUTE NEUTROPHILS (test c ode = 1066) 4.25 K/UL ABSOLUTE LYMPHOCYTES (test c ode = 1067) 1.85 K/UL ABSOLUTE MONOCYTES (test cod e = 1068) 0.42 K/UL ABSOLUTE EOSINOPHILS (test c ode = 1040) 0.19 K/UL ABSOLUTE BASOPHILS (test cod e = 1069) 0.04 K/UL ABS IMMATURE GRANULOCYTES (t est code = 1020) 0.01 K/UL ABS NUCLEATED RBCS (test cod e = 00980) 0.00 K/UL LIPID [id number] 00:00:00* Test Item Value Reference Range Interpretation Comme nts CHOLESTEROL (test code = 2210) 278 MG/DL TRIGLYCERIDES (test code = 2232) 389 MG/DL HDL CHOLESTEROL (test code = 2220) 51 MG/DL CALC LDL CHOL (test code = 2237) 161 MG/DL RISK RATIO LDL/HDL (test cod e = 2238) 3.16 RATIO COMPREHENSIVE METABOLIC [id number] 00:00:00* Test Item Value Reference Range Interpretation Comme nts GLUCOSE (test code = 2217) 104 MG/DL BUN (test code = 2208) 11 MG/DL CREATININE (test code = 2214) 0.51 MG/DL eGFR (2020 CKD-EPI) (test code = 59647) 113 ML/MIN/1.73 CALC BUN/CREAT (test code = 2235) 22 RATIO SODIUM (test code = 2231) 143 MEQ/L POTASSIUM (test code = 2228) 4.0 MEQ/L CHLORIDE (test code = 2215) 102 MEQ/L CARBON DIOXIDE (test code = 2206) 29 MEQ/L CALCIUM (test code = 2209) 9.1 MG/DL PROTEIN, TOTAL (test code = 2229) 7.5 G/DL ALBUMIN (test code = 2201) 4.7 G/DL CALC GLOBULIN (test code = 2240) 2.8 G/DL CALC A/G RATIO (test code = 2234) 1.7 RATIO BILIRUBIN, TOTAL (test code = 2207) 0.3 MG/DL ALKALINE PHOSPHATASE (test code = 2204) 99 U/L AST (test code = 2218) 17 U/L ALT (test code = 2219) 13 U/L [id number] 00:00:00* Test Item Value Reference Range Interpretation Comme nts TSH, THIRD GENERATION (test code = 2821) 3.310 UIU/ML [id number] 00:00:00* Test Item Value Reference Range Interpretation Comme nts TSH, THIRD GENERATION (test code = 2821) 3.310 UIU/ML CBC W/AUTO [id number] 00:00:00* Test Item Value Reference Range Interpretation Comme nts WBC (test code = 1001) 6.8 K/UL RBC (test code = 1002) 4.41 M/UL HEMOGLOBIN (test code = 1003) 14.0 G/DL HEMATOCRIT (test code = 1004) 40.1 % MCV (test code = 1005) 90.9 fL MCH (test code = 1006) 31.7 PG MCHC (test code = 1007) 34.9 G/DL RDW (test code = 1038) 12.7 % NEUTROPHILS (test code = 1008) 62.9 % LYMPHOCYTES (test code = 1010) 27.4 % MONOCYTES (test code = 1011) 6.2 % EOSINOPHILS (test code = 1012) 2.8 % BASOPHILS (test code = 1013) 0.6 % IMMATURE GRANULOCYTES (test code = 1036) 0.1 % NUCLEATED RBCS (test code = 1065) 0.0 /100WBC'S PLATELET COUNT (test code = 1015) 315 K/UL ABSOLUTE NEUTROPHILS (test c ode = 1066) 4.25 K/UL ABSOLUTE LYMPHOCYTES (test c ode = 1067) 1.85 K/UL ABSOLUTE MONOCYTES (test cod e = 1068) 0.42 K/UL ABSOLUTE EOSINOPHILS (test c ode = 1040) 0.19 K/UL ABSOLUTE BASOPHILS (test cod e = 1069) 0.04 K/UL ABS IMMATURE GRANULOCYTES (t est code = 1020) 0.01 K/UL ABS NUCLEATED RBCS (test cod e = 59572) 0.00 K/UL CBC W/AUTO [id number] 00:00:00* Test Item Value Reference Range Interpretation Comme nts WBC (test code = 1001) 6.8 K/UL RBC (test code = 1002) 4.41 M/UL HEMOGLOBIN (test code = 1003) 14.0 G/DL HEMATOCRIT (test code = 1004) 40.1 % MCV (test code = 1005) 90.9 fL MCH (test code = 1006) 31.7 PG MCHC (test code = 1007) 34.9 G/DL RDW (test code = 1038) 12.7 % NEUTROPHILS (test code = 1008) 62.9 % LYMPHOCYTES (test code = 1010) 27.4 % MONOCYTES (test code = 1011) 6.2 % EOSINOPHILS (test code = 1012) 2.8 % BASOPHILS (test code = 1013) 0.6 % IMMATURE GRANULOCYTES (test code = 1036) 0.1 % NUCLEATED RBCS (test code = 1065) 0.0 /100WBC'S PLATELET COUNT (test code = 1015) 315 K/UL ABSOLUTE NEUTROPHILS (test c ode = 1066) 4.25 K/UL ABSOLUTE LYMPHOCYTES (test c ode = 1067) 1.85 K/UL ABSOLUTE MONOCYTES (test cod e = 1068) 0.42 K/UL ABSOLUTE EOSINOPHILS (test c ode = 1040) 0.19 K/UL ABSOLUTE BASOPHILS (test cod e = 1069) 0.04 K/UL ABS IMMATURE GRANULOCYTES (t est code = 1020) 0.01 K/UL ABS NUCLEATED RBCS (test cod e = 77492) 0.00 K/UL CBC W/AUTO [id number] 00:00:00* Test Item Value Reference Range Interpretation Comme nts WBC (test code = 1001) 6.8 K/UL RBC (test code = 1002) 4.41 M/UL HEMOGLOBIN (test code = 1003) 14.0 G/DL HEMATOCRIT (test code = 1004) 40.1 % MCV (test code = 1005) 90.9 fL MCH (test code = 1006) 31.7 PG MCHC (test code = 1007) 34.9 G/DL RDW (test code = 1038) 12.7 % NEUTROPHILS (test code = 1008) 62.9 % LYMPHOCYTES (test code = 1010) 27.4 % MONOCYTES (test code = 1011) 6.2 % EOSINOPHILS (test code = 1012) 2.8 % BASOPHILS (test code = 1013) 0.6 % IMMATURE GRANULOCYTES (test code = 1036) 0.1 % NUCLEATED RBCS (test code = 1065) 0.0 /100WBC'S PLATELET COUNT (test code = 1015) 315 K/UL ABSOLUTE NEUTROPHILS (test c ode = 1066) 4.25 K/UL ABSOLUTE LYMPHOCYTES (test c ode = 1067) 1.85 K/UL ABSOLUTE MONOCYTES (test cod e = 1068) 0.42 K/UL ABSOLUTE EOSINOPHILS (test c ode = 1040) 0.19 K/UL ABSOLUTE BASOPHILS (test cod e = 1069) 0.04 K/UL ABS IMMATURE GRANULOCYTES (t est code = 1020) 0.01 K/UL ABS NUCLEATED RBCS (test cod e = 71733) 0.00 K/UL LIPID [id number] 00:00:00* Test Item Value Reference Range Interpretation Comme nts CHOLESTEROL (test code = 2210) 278 MG/DL TRIGLYCERIDES (test code = 2232) 389 MG/DL HDL CHOLESTEROL (test code = 2220) 51 MG/DL CALC LDL CHOL (test code = 2237) 161 MG/DL RISK RATIO LDL/HDL (test cod e = 2238) 3.16 RATIO LIPID [id number] 00:00:00* Test Item Value Reference Range Interpretation Comme nts CHOLESTEROL (test code = 2210) 278 MG/DL TRIGLYCERIDES (test code = 2232) 389 MG/DL HDL CHOLESTEROL (test code = 2220) 51 MG/DL CALC LDL CHOL (test code = 2237) 161 MG/DL RISK RATIO LDL/HDL (test cod e = 2238) 3.16 RATIO COMPREHENSIVE METABOLIC [id number] 00:00:00* Test Item Value Reference Range Interpretation Comme nts GLUCOSE (test code = 2217) 104 MG/DL BUN (test code = 2208) 11 MG/DL CREATININE (test code = 2214) 0.51 MG/DL eGFR (2020 CKD-EPI) (test code = 75125) 113 ML/MIN/1.73 CALC BUN/CREAT (test code = 2235) 22 RATIO SODIUM (test code = 2231) 143 MEQ/L POTASSIUM (test code = 2228) 4.0 MEQ/L CHLORIDE (test code = 2215) 102 MEQ/L CARBON DIOXIDE (test code = 2206) 29 MEQ/L CALCIUM (test code = 2209) 9.1 MG/DL PROTEIN, TOTAL (test code = 2229) 7.5 G/DL ALBUMIN (test code = 2201) 4.7 G/DL CALC GLOBULIN (test code = 2240) 2.8 G/DL CALC A/G RATIO (test code = 2234) 1.7 RATIO BILIRUBIN, TOTAL (test code = 2207) 0.3 MG/DL ALKALINE PHOSPHATASE (test code = 2204) 99 U/L AST (test code = 2218) 17 U/L ALT (test code = 2219) 13 U/L COMPREHENSIVE METABOLIC [id number] 00:00:00* Test Item Value Reference Range Interpretation Comme nts GLUCOSE (test code = 2217) 104 MG/DL BUN (test code = 2208) 11 MG/DL CREATININE (test code = 2214) 0.51 MG/DL eGFR (2020 CKD-EPI) (test code = 24611) 113 ML/MIN/1.73 CALC BUN/CREAT (test code = 2235) 22 RATIO SODIUM (test code = 2231) 143 MEQ/L POTASSIUM (test code = 2228) 4.0 MEQ/L CHLORIDE (test code = 2215) 102 MEQ/L CARBON DIOXIDE (test code = 2206) 29 MEQ/L CALCIUM (test code = 2209) 9.1 MG/DL PROTEIN, TOTAL (test code = 2229) 7.5 G/DL ALBUMIN (test code = 2201) 4.7 G/DL CALC GLOBULIN (test code = 2240) 2.8 G/DL CALC A/G RATIO (test code = 2234) 1.7 RATIO BILIRUBIN, TOTAL (test code = 2207) 0.3 MG/DL ALKALINE PHOSPHATASE (test code = 2204) 99 U/L AST (test code = 2218) 17 U/L ALT (test code = 2219) 13 U/L [id number] 00:00:00* Test Item Value Reference Range Interpretation Comme nts TSH, THIRD GENERATION (test code = 2821) 3.310 UIU/ML [id number] 00:00:00* Test Item Value Reference Range Interpretation Comme nts TSH, THIRD GENERATION (test code = 2821) 3.310 UIU/ML [id number] 00:00:00* Test Item Value Reference Range Interpretation Comme nts TSH, THIRD GENERATION (test code = 2821) 3.310 UIU/ML CBC W/AUTO [id number] 00:00:00* Test Item Value Reference Range Interpretation Comme nts WBC (test code = 1001) 6.8 K/UL RBC (test code = 1002) 4.41 M/UL HEMOGLOBIN (test code = 1003) 14.0 G/DL HEMATOCRIT (test code = 1004) 40.1 % MCV (test code = 1005) 90.9 fL MCH (test code = 1006) 31.7 PG MCHC (test code = 1007) 34.9 G/DL RDW (test code = 1038) 12.7 % NEUTROPHILS (test code = 1008) 62.9 % LYMPHOCYTES (test code = 1010) 27.4 % MONOCYTES (test code = 1011) 6.2 % EOSINOPHILS (test code = 1012) 2.8 % BASOPHILS (test code = 1013) 0.6 % IMMATURE GRANULOCYTES (test code = 1036) 0.1 % NUCLEATED RBCS (test code = 1065) 0.0 /100WBC'S PLATELET COUNT (test code = 1015) 315 K/UL ABSOLUTE NEUTROPHILS (test c ode = 1066) 4.25 K/UL ABSOLUTE LYMPHOCYTES (test c ode = 1067) 1.85 K/UL ABSOLUTE MONOCYTES (test cod e = 1068) 0.42 K/UL ABSOLUTE EOSINOPHILS (test c ode = 1040) 0.19 K/UL ABSOLUTE BASOPHILS (test cod e = 1069) 0.04 K/UL ABS IMMATURE GRANULOCYTES (t est code = 1020) 0.01 K/UL ABS NUCLEATED RBCS (test cod e = 27515) 0.00 K/UL CBC W/AUTO [id number] 00:00:00* Test Item Value Reference Range Interpretation Comme nts WBC (test code = 1001) 6.8 K/UL RBC (test code = 1002) 4.41 M/UL HEMOGLOBIN (test code = 1003) 14.0 G/DL HEMATOCRIT (test code = 1004) 40.1 % MCV (test code = 1005) 90.9 fL MCH (test code = 1006) 31.7 PG MCHC (test code = 1007) 34.9 G/DL RDW (test code = 1038) 12.7 % NEUTROPHILS (test code = 1008) 62.9 % LYMPHOCYTES (test code = 1010) 27.4 % MONOCYTES (test code = 1011) 6.2 % EOSINOPHILS (test code = 1012) 2.8 % BASOPHILS (test code = 1013) 0.6 % IMMATURE GRANULOCYTES (test code = 1036) 0.1 % NUCLEATED RBCS (test code = 1065) 0.0 /100WBC'S PLATELET COUNT (test code = 1015) 315 K/UL ABSOLUTE NEUTROPHILS (test c ode = 1066) 4.25 K/UL ABSOLUTE LYMPHOCYTES (test c ode = 1067) 1.85 K/UL ABSOLUTE MONOCYTES (test cod e = 1068) 0.42 K/UL ABSOLUTE EOSINOPHILS (test c ode = 1040) 0.19 K/UL ABSOLUTE BASOPHILS (test cod e = 1069) 0.04 K/UL ABS IMMATURE GRANULOCYTES (t est code = 1020) 0.01 K/UL ABS NUCLEATED RBCS (test cod e = 25888) 0.00 K/UL CBC W/AUTO [id number] 00:00:00* Test Item Value Reference Range Interpretation Comme nts WBC (test code = 1001) 6.8 K/UL RBC (test code = 1002) 4.41 M/UL HEMOGLOBIN (test code = 1003) 14.0 G/DL HEMATOCRIT (test code = 1004) 40.1 % MCV (test code = 1005) 90.9 fL MCH (test code = 1006) 31.7 PG MCHC (test code = 1007) 34.9 G/DL RDW (test code = 1038) 12.7 % NEUTROPHILS (test code = 1008) 62.9 % LYMPHOCYTES (test code = 1010) 27.4 % MONOCYTES (test code = 1011) 6.2 % EOSINOPHILS (test code = 1012) 2.8 % BASOPHILS (test code = 1013) 0.6 % IMMATURE GRANULOCYTES (test code = 1036) 0.1 % NUCLEATED RBCS (test code = 1065) 0.0 /100WBC'S PLATELET COUNT (test code = 1015) 315 K/UL ABSOLUTE NEUTROPHILS (test c ode = 1066) 4.25 K/UL ABSOLUTE LYMPHOCYTES (test c ode = 1067) 1.85 K/UL ABSOLUTE MONOCYTES (test cod e = 1068) 0.42 K/UL ABSOLUTE EOSINOPHILS (test c ode = 1040) 0.19 K/UL ABSOLUTE BASOPHILS (test cod e = 1069) 0.04 K/UL ABS IMMATURE GRANULOCYTES (t est code = 1020) 0.01 K/UL ABS NUCLEATED RBCS (test cod e = 60596) 0.00 K/UL LIPID [id number] 00:00:00* Test Item Value Reference Range Interpretation Comme nts CHOLESTEROL (test code = 2210) 278 MG/DL TRIGLYCERIDES (test code = 2232) 389 MG/DL HDL CHOLESTEROL (test code = 2220) 51 MG/DL CALC LDL CHOL (test code = 2237) 161 MG/DL RISK RATIO LDL/HDL (test cod e = 2238) 3.16 RATIO
[2023-05-17 15:50] LABS: Urine Bacteria <20 /HPF (<20); Urine Bilirubin NEGATIVE (Negative); Urine Blood 2+ (Negative); Urine Clarity Extremely Turbid (Clear); Urine Color Light-Yellow (Yellow); Urine Crystals Unidentified Few /HPF (None Seen); Urine Glucose NEGATIVE (Negative); Urine Mucus Slight /HPF (None Seen); Urine Protein NEGATIVE (Negative); Urine RBC <5 /HPF (None Seen); Urine Urobilinogen Normal (Normal); Urine pH 5.5 (5.0-7.0)
[2023-05-17 15:53] LABS: Absolute Lymphocytes (CBC) 1.3 K/uL (0.7-4.9); Hematocrit 34.7 % (36.0-45.0); Lymphocytes % 27.6 % (15.3-44.8); MCV 88.5 fL (80-100); MPV 7.2 fL (7.6-11.3); Platelets 350 thou/uL (152-406); RBC Red Blood Cell Count 3.92 M/uL (3.86-4.86)
--- NOTE | 2023-05-17 15:56 | RAD REPORT ---
EXAM DESCRIPTION: Vikram Single View05/17/2023 3:42 pm CLINICAL HISTORY: Palpitations COMPARISON: January 2023 FINDINGS: The lungs appear clear of acute infiltrate. The heart is normal size IMPRESSION: No acute abnormalities displayed
[2023-05-17 16:13] LABS: ALT/SGPT 76 U/L (13-56); AST/SGOT 46 U/L (15-37); Albumin 2.9 g/dL (3.4-5.0); Alkaline Phosphatase 106 U/L (45-117); BUN Blood Urea Nitrogen 11 mg/dL (7-18); Bicarbonate 23 mEq/L (21-32); Bilirubin Total 0.6 mg/dL (0.2-1.0); Glomerular Filtration Rate 110 ml/min (=/>90); Glucose Level 159 mg/dL (74-106); Potassium 3.5 mEq/L (3.5-5.1); Protein, Total 6.8 g/dL (6.4-8.2); Sodium Level 139 mEq/L (136-145); Troponin High Sensitivity 22.5 pg/mL (<58.9)
[2023-05-17 16:16] LABS: Thyroid Stimulating Hormone < 0.005 uIU/mL (0.358-3.740)
--- NOTE | 2023-05-17 17:21 | ER ---
Nurse's Notes [facility] Name: Colleen Noguera Age: 53 yrs Sex: Female : 1970 Arrival Date: 05/17/2023 Time: 14:57 Bed IW10 Private MD: Jason Garcia Diagnosis: Hyperthyroidism Presentation: 05/17 15:09 Chief complaint: Patient states: PALPITATIONS SINCE YESTERDAY, WORSE TODAY. Coronavirus bp screen: At this time, the client does not indicate any symptoms associated with coronavirus-19. Ebola Screen: No symptoms or risks identified at this time. Initial Sepsis Screen: Does the patient meet any 2 criteria? HR > 90 bpm. No. Patient's initial sepsis screen is negative. Does the patient have a suspected source of infection? No. Patient's initial sepsis screen is negative. Risk Assessment: Do you want to hurt yourself or someone else? Patient reports no desire to harm self or others. Onset of symptoms was May 16, 2023. 15:09 Method Of Arrival: Ambulatory bp 15:09 Acuity: TEO 3 bp Triage Assessment: 15:11 General: Appears in no apparent distress. Behavior is cooperative, appropriate for age, bp anxious. Pain: Denies pain. 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 - Social history:: Smoking status: Patient denies any tobacco usage or history of. Screenin:14 [facility] ED Fall Risk Assessment (Adult) History of falling in the last 3 months, bp including since admission No falls in past 3 months (0 pts). Abuse screen: Denies threats or abuse. Denies injuries from another. Nutritional screening: No deficits noted. Tuberculosis screening: No symptoms or risk factors identified. Assessment: 15:55 General: Appears uncomfortable, well groomed, well developed, well nourished, Behavior me1 is cooperative, appropriate for age, anxious, Reports palpitations since yesterday that are worse today. Denies chest pain. Pain: Denies pain. Neuro: Level of Consciousness is awake, alert, obeys commands, Oriented to person, place, time, situation, Appropriate for age. Cardiovascular: Capillary refill < 3 seconds Patient's skin is warm and dry. Cardiovascular: Reports palpitations, Denies chest pain. Respiratory: Airway is patent Respiratory effort is even, unlabored, Respiratory pattern is regular, symmetrical. Vital Signs: 15:09 BP 147 / 65; Pulse 108; Resp 20; Temp 98; Pulse Ox 98% ; Weight 69.4 kg; Height 5 ft. 0 bp in. ; 15:57 BP 166 / 50; Pulse 95; Resp 19; Pulse Ox 100% on R/A; me1 16:15 BP 172 / 53; Pulse 94; Resp 16; Pulse Ox 97% on R/A; me1 16:45 BP 183 / 46; Pulse 103; Resp 19; Pulse Ox 94% on R/A; me1 17:50 BP 168 / 51; Pulse 117; Resp 26; Pulse Ox 97% on R/A; me1 18:00 BP 143 / 48; Pulse 90; Resp 17; Pulse Ox 94% on R/A; me1 18:00 BP 139 / 94; Pulse 85; Resp 17; Pulse Ox 97% on R/A; me1 15:09 Body Mass Index 29.88 (69.40 kg, 152.4 cm) bp ED Course: 14:59 Patient arrived in ED. rg4 14:59 Jason Garcia DO is Private Physician. rg4 15:02 Jr Mcgill MD is Attending Physician. ec2 15:11 Triage completed. bp 15:11 Arm band placed on. bp 15:14 Patient has correct armband on for positive identification. bp 15:17 Aaliyah Apple, RAFFAELE is Primary Nurse. me1 15:32 Inserted saline lock: 22 gauge in right antecubital area, using aseptic technique. me1 15:33 T4 Free Sent. me1 15:33 TSH Sent. me1 15:33 UAM Sent. me1 15:33 Troponin High Sensitivity Sent. me1 15:33 CMP Sent. me1 15:33 CBC with Diff Sent. me1 15:37 D-Dimer Sent. me1 15:44 CXR XRAY In Process Unspecified. EDMS 15:55 Provided Education on: POC. Verbalized understanding. . me1 15:55 No provider procedures requiring assistance completed. me1 17:19 initiated transfer to [facility]. bd 19:[address] Pablo Burden to [facility] 7S3 Bed 6. 5 19:24 Contacted [facility] to request transport, denied due to truck being stuck on 5 other transfer. 19:25 Contacted [facility] to request transport, 45 min ETA. [facility] 19:33 Patient transferred, IV remains in place. me1 Administered Medications: 15:50 Drug: NS 0.9% IV 1000 ml IV at 1 bolus Per protocol; 1000 mL bolus Route: IV; Rate: 1 me1 bolus; Site: right antecubital; 17:23 Follow up: IV Status: Completed infusion me1 15:50 Drug: Diazepam IVP 2 mg IVP once Route: IVP; Site: right antecubital; me1 17:23 Follow up: Response: No adverse reaction me1 17:49 Drug: NS 0.9% IV 1000 ml IV at 1 bolus Per protocol; 1000 mL bolus Route: IV; Rate: 1 me1 bolus; Site: right antecubital; 20:31 Follow up: IV Status: Completed infusion me1 17:50 Drug: Metoprolol IVP 5 mg IVP once; Hold for SBP <100 or HR <60. Route: IVP; [place] [facility] [place]; 18:36 Follow up: Response: No adverse reaction me1 17:56 Drug: Diazepam IVP 10 mg IVP once Route: IVP; Site: right antecubital; me1 18:36 Follow up: Response: No adverse reaction me1 Medication: 15:55 VIS not applicable for this client. me1 Outcome: 17:21 ER care complete, transfer ordered by MD. ec2 19:32 Transferred by ground EMS to [facility], Transfer form completed. me1 Note: report given to RAFFAELE Coates. 19:32 Condition: stable 21:04 Patient left the ED. me1 Signatures: Dispatcher [employer] EDMS Uma Freeman Rubi rg4 Harry Esposito RN RN Aaliyah Apple RN RN me1 Amy Bertrand 5 Jr Mcgill MD MD ec2 Corrections: (The following items were deleted from the chart) 15:14 15:09 BP 147 / 65; Pulse 108bpm; Resp 20bpm; Pulse Ox 98%; Temp 98F; bp bp 15:55 15:09 Chief complaint: Patient states: PALPITATIONS SINCE YESTERDAY, WORSE TODAY bp me1
--- NOTE | 2023-05-17 17:21 | EDPHYS ---
Physician Documentation [facility] Name: Colleen Noguera Age: 53 yrs Sex: Female : 1970 Arrival Date: 05/17/2023 Time: 14:57 Bed IW10 Private MD: Jason Garcia ED Physician Jr Mcgill HPI: 05/17 15:17 This 53 yrs old Female presents to ER via Ambulatory with complaints of ec2 Palpitations, Shaking. 15:17 Patient arrives today for evaluation of palpitations and tremulousness. Patient reports ec2 that she has been experiencing tremulousness throughout the day, states that they have been getting worse. States that she feels palpitations and that her heart is racing. Patient reports no chest pain, no difficulty breathing. Patient reports a history of hypothyroidism, states that she is supposed to be on thyroid medication. States that she has taken thyroid medication however has presented atorvastatin in the lieu of thyroid medication. Denies any cough and cold symptoms, denies vomiting or diarrhea.. 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 - Social history:: Smoking status: Patient denies any tobacco usage or history of. ROS: 15:17 Constitutional: as per hpi ec2 Exam: 15:17 Constitutional: GEN: NAD Head: atraumatic Eyes: EOMI Ears: External ears are ec2 normal. CV: Tachycardia, lower extremity trace edema LUNGS: no respiratory distress, no wheezes, no rales, no rhonchi ABD: non-distended SKIN: no evidence of rashes MSK: no evidence of trauma NEURO: moves all extremities equally. Psych: Anxious individual Vital Signs: 15:09 BP 147 / 65; Pulse 108; Resp 20; Temp 98; Pulse Ox 98% ; Weight 69.4 kg; Height 5 ft. 0 bp in. ; 15:57 BP 166 / 50; Pulse 95; Resp 19; Pulse Ox 100% on R/A; me1 16:15 BP 172 / 53; Pulse 94; Resp 16; Pulse Ox 97% on R/A; me1 16:45 BP 183 / 46; Pulse 103; Resp 19; Pulse Ox 94% on R/A; me1 17:50 BP 168 / 51; Pulse 117; Resp 26; Pulse Ox 97% on R/A; me1 18:00 BP 143 / 48; Pulse 90; Resp 17; Pulse Ox 94% on R/A; me1 18:00 BP 139 / 94; Pulse 85; Resp 17; Pulse Ox 97% on R/A; me1 15:09 Body Mass Index 29.88 (69.40 kg, 152.4 cm) bp MDM: 15:17 Patient medically screened. ec2 15:58 Data reviewed: vital signs. ED course: CBC is reassuring without significant anemia. ec2 Urine is notable for leuk esterase present otherwise not grossly infectious, will defer to culture. Chest x-ray shows no acute intrathoracic process. . 16:02 ED course: D-dimer within normal ranges.. ec2 16:35 ED course: Metabolic profile is reassuring. Troponin is within normal ranges. TSH is ec2 undetectable, T4 is elevated. Ultimately patient was hyperthyroidism, patient does not appear to be in thyroid storm or thyrotoxicosis, patient is afebrile, patient with mild symptoms, improved tachycardia, appropriate hemodynamics, not agitated and otherwise well-appearing however does have persistent tremulousness. . 17:03 ED course: I discussed possible admission to the hospital given the patient's ec2 tremulousness as well as her palpitations, she states that he she feels that her symptoms are too debilitating at this time and does not feel comfortable with returning home. I will admit the patient for symptomatic control for hyperthyroidism. . 17:19 ED course: Ultimately we do not have appropriate medications here including PTU and ec2 methimazole in case the patient deteriorates and transitions into thyroid storm, accordingly I will transfer the patient due to potential decompensation.. 19:23 Management of patient was discussed with the following: Dr Burden, category development analyst at [facility] accepts pt for transfer. 05/17 15:17 Order name: CBC with Diff; Complete Time: 15:58 ec2 05/17 15:17 Order name: CMP; Complete Time: 16:32 ec2 05/17 15:17 Order name: Troponin High Sensitivity; Complete Time: 16:32 ec2 05/17 15:17 Order name: UAM; Complete Time: 15:58 ec2 05/17 15:17 Order name: TSH; Complete Time: 16:32 ec2 05/17 15:17 Order name: T4 Free; Complete Time: 16:32 ec2 05/17 15:18 Order name: D-Dimer; Complete Time: 16:02 ec2 05/17 15:17 Order name: CXR XRAY; Complete Time: 15:58 ec2 05/17 15:17 Order name: EKG; Complete Time: 15:17 ec2 05/17 15:17 Order name: EKG - Nurse/Tech; Complete Time: 16:45 ec2 Administered Medications: 15:50 Drug: NS 0.9% IV 1000 ml IV at 1 bolus Per protocol; 1000 mL bolus Route: IV; Rate: 1 me1 bolus; Site: right antecubital; 17:23 Follow up: IV Status: Completed infusion me1 15:50 Drug: Diazepam IVP 2 mg IVP once Route: IVP; Site: right antecubital; me1 17:23 Follow up: Response: No adverse reaction me1 17:49 Drug: NS 0.9% IV 1000 ml IV at 1 bolus Per protocol; 1000 mL bolus Route: IV; Rate: 1 me1 bolus; Site: right antecubital; 20:31 Follow up: IV Status: Completed infusion me1 17:50 Drug: Metoprolol IVP 5 mg IVP once; Hold for SBP <100 or HR <60. Route: IVP; [place] [facility] [place]ital; 18:36 Follow up: Response: No adverse reaction me1 17:56 Drug: Diazepam IVP 10 mg IVP once Route: IVP; Site: right antecubital; me1 18:36 Follow up: Response: No adverse reaction me1 Disposition: 05/18 12:48 I agree with the assessment and plan of care. I reviewed the patient's care provided by [facility] Advanced [facility] Provider \T\ agree w/ the diagnosis \T\ care plan. I personally saw the pt \T\ performed a substantive portion of the visit, incldng all aspects of the (History/Exam/Medical Decision Making). Disposition Summary: 05/17/23 17:21 Transfer Ordered Notes: Reason: Higher level of care ec2 Condition: Stable ec2 Problem: an acute exacerbation ec2 Symptoms: have improved ec2 Transfer Location: [facility](05/17/23 19:23) kb Accepting Physician: Dr Burden(05/17/23 21:04) me1 Diagnosis - Hyperthyroidism ec2 Forms: - Medication Reconciliation Form ec2 - SBAR form ec2 Signatures: Dispatcher [employer] EDMS Aimee Dixon, JOHN-C JOHN-Harry Hathaway, RN RN bp Aaliyah Apple RN RN me1 Jr Mcgill MD MD ec2 Corrections: (The following items were deleted from the chart) 05/17 17:03 16:35 ED course: Metabolic profile is reassuring. Troponin is within normal ranges. TSH ec2 is undetectable, T4 is elevated. Ultimately patient was hyperthyroidism, patient does not appear to be in thyroid storm or thyrotoxicosis, patient is afebrile, patient with mild symptoms, resolved tachycardia, appropriate hemodynamics, not agitated and otherwise well-appearing. . ec2 19:23 17:21 Transferring Facility ec2 kb 19:23 17:21 Other Acute Care Facility ec2 kb 21:04 19:23 Dr Burden me1
[2023-05-17 22:39] VITALS: TEMP 98
[2023-05-17 22:44] VITALS: BP 139/94; O2SAT 97
--- NOTE | 2023-05-19 15:13 | EKG ---
Test Date: 2023-05-17 Test Time: 16:43:56 Sales Relationship Manager: LML MEASUREMENT RESULTS: Intervals: Rate: 98 AL: 130 QRSD: 74 QT: 348 QTc: 444 [place]: P: -53 AL: 130 QRS: -87 T: 262 INTERPRETIVE STATEMENTS: Unusual P axis, possible ectopic atrial rhythm Left axis deviation Inferior infarct, age undetermined Abnormal ECG No previous ECG available for comparison Electronically Signed On 05-19-23 15:09:17 REGULATORY COMPLIANCE COORDINATOR by Naeem Rojo
== END ==
LOC: ER 14:57
DX: E05.90 Thyrotoxicosis, unspecified without thyrotoxic crisis or storm (principal)
CPT/HCPCS: 36415; 71045; 80053; 81001; 84439; 84443; 84484; 85025; 85379; 93005; 96361; 96374; 96375; 99285; J3360; J7030